=== PATIENT | female | born 1980 | race Caucasian/White ===

== ENCOUNTER 2016-05-28 18:35 | Emergency (ER) | payer OTHER ==
[~2016-05-28] VITALS: Ht 175.3 cm; Wt 158.8 kg
[~2016-05-28 18:35] MED LIST: CIPR500T78 PO; CITA40TA19 PO; CLIN300C3 PO; CPR500T PO; DCS100C PO; DOXY100C42 PO; ENXP40I.4 SC; ETHY1TAB4 PO; FLC100T1 PO; FLUC200T45 PO; HYDR-3720 PO; HYOS0.1283 SL; IBP800T PO; IBUP800T26 PO; METR500T PO; MTF500T PO; NITR-65 PO; NORG1TAB14 PO; OMEG-12 PO; OMEP40CA36 PO; ONDA4TAB8 PO; ONDN4T PO; OXYC-202 PO; PNV1CAPS13 PO; PREN1CAP PO; SERT50TA9 PO; TRAM-21 PO; TRM50T PO; depo shot
--- OUTSIDE RECORDS SUMMARY | 2016-05-28 18:40 | XMS REPORT | Continuity of Care Document ---
Author Author [facility] Organization [facility] Address Unknown Phone Unavailable Care Team Providers Care Polisher Implant Name Role Phone CARLOZ COMER MD PCP Insurance Providers Payer Name Policy Number Subscriber Name Relationship R [id number] Ilana Pro 18 Self / Same As Patient Advance Directives Directive Response Recorded Date/Time Advance Directives No 02/29/16 11:28am Health Care Power of Rail Manager No 02/29/16 11:28am Organ Donor No 02/29/16 11:28am Resuscitation Status Full Code 02/29/16 11:28am Problems Active Problems Medical Problem Onset Date Status Fever Unknown Acute Gastroenteritis Unknown Acute Postoperative state Unknown Acute state Unknown Acute Tachycardia Unknown Acute Urinary tract infection Unknown Acute Medications Current Home Medications Medication Dose Units Route Directions Days/Qty Instructions Start Date Sertraline Hcl 50 Mg 50 Mg Oral Daily 02/26/16 Ethynodiol D-Ethinyl Estradiol 1 Each 1 Each Oral Daily 02/26/16 Oxycodone Hcl/Acetaminophen 1 Each 1-2 Tab Oral Every 4HRS as needed for Pain 60 02/29/16 Past Home Medications Medication Directions Ordered Status Metformin Hcl (Glucophage) 500 Mg Tablet, 1 Each Oral Daily 07/19/12 Discontinued Citalopram Hydrobromide 40 Mg Tablet, 1 Each Oral Daily 07/19/12 Discontinued Ciprofloxacin 500 Mg Tablet, 1 Tab Oral Twice A Day 07/19/12 Discontinued Tramadol Hcl 50 Mg Tab, 100 Mg Oral Every 4HRS as needed 07/19/12 Discontinued Flasher-3/Dha/Epa/Fish Oil 1 Each Capsule.dr, 1 Each Oral Daily 07/19/12 Discontinued Pnv Comb.no58/Iron Bisgly/Fa 1 Each Capsule, 1 Each Oral 02/23/13 Discontinued No.25/Iron/Fa #6/Dha 1 Each Capsule, 2 Each Oral Daily 02/23/13 Discontinued Fluconazole 100 Mg Tab, 100 Mg Oral Daily@08 02/25/13 Discontinued Clindamycin Hcl 300 Mg Capsule, 2 Each Oral Give Every 8 Hrs On Schedule 11/30 Discontinued Ondansetron Hcl 4 Mg Tab, 1 Tab Oral Every 4HRS as needed for Nausea Discontinued Docusate Sodium 100 Mg Capsule, 1 Cap Oral Daily as needed for Constipation 06/25/13 Discontinued Acetaminophen/Hydrocodone Bitart (Jolo) 1 Each Tablet, 1-2 Tab Oral Every 3 Hours as needed for Pain 06/25/13 Discontinued Ibuprofen 800 Mg Tablet, 1 Tab Oral Every 6 Hours as needed for Pain Discontinued Doxycycline Monohydrate 100 Mg Capsule, 100 Mg Oral Twice A Day 06/28/13 Discontinued Enoxaparin Sodium 40 Mg/0.4 Ml Syr, 40 Mg Subcutaneously Every 24 Hours 07/01 Discontinued Docusate Sodium 100 Mg Capsule, 1 Cap Oral Daily as needed for Constipation 07/01/13 Discontinued Acetaminophen/Hydrocodone Bitart (Jolo) 1 Each Tablet, 1-2 Tab Oral Every 3 Hours as needed for Pain 07/01/13 Discontinued Ibuprofen 800 Mg Tablet, 1 Tab Oral Every 6 Hours as needed for Pain Discontinued Metronidazole 500 Mg Tab, 500 Mg Oral Twice A Day 07/01/13 Discontinued Ciprofloxacin Hcl 500 Mg Tablet, 500 Mg Oral Twice A Day 07/01/13 Discontinued Fluconazole 200 Mg Tablet, 1 Each Oral As Directed 07/01/13 Discontinued [Depo Shot] , 10/10/13 Discontinued Ibuprofen (Motrin) 800 Mg Tablet, 800 Mg Oral Every 8 Hours as needed for Pain 10/11/13 Discontinued Tramadol Hcl 50 Mg Tablet, 50-100 Mg Oral Every 6 Hours 11/27/13 Discontinued Omeprazole 40 Mg Capsule., 1 Cap Oral Daily 01/15/15 Discontinued Sertraline Hcl 50 Mg Tablet, 1 Tab Oral Daily 01/15/15 Discontinued Norgestimate-Ethinyl Estradiol 1 Each Tablet, 1 Tab Oral Daily 01/15/15 Discontinued Nitrofurantoin Monohyd/M-Cryst 100 Mg Capsule, 100 Mg Oral Twice A Day Discontinued Ondansetron 4 Mg Tab.rapdis, 4 Mg Oral Every 4HRS for Nausea/Vomiting Discontinued Hyoscyamine Sulfate 0.125 Mg Tab.subl, 1-2 Tab Sublingual Every 4HRS for Abdominal Pain 01/15/15 Discontinued Social History Social History Problem Response Recorded Date/Time Alcohol Use Rarely Uses 01/15/2015 8:32pm Recreational Drug Use No 01/15/2015 8:32pm Recent Foreign Travel No 11/26/2013 12:12pm Recent Infectious Disease Exposure No 11/26/2013 12:12pm Hospitalization with Isolation Denies 11/27/2013 6:22pm Sexually Transmitted Disease No 02/26/2016 11:48am HIV/AIDS No 02/26/2016 11:48am Smoking Status Never a Smoker 02/29/2016 11:28am Do you dip or chew tobacco? No 01/15/2015 8:32pm Recent Hopitalizations No 02/26/2016 11:48am Sexually Transmitted Disease No 02/26/2016 11:48am Hospitalization with Isolation Denies 11/27/2013 6:22pm Query Response Start Date Stop Date Smoking Status Never a Smoker 06/23/1999 Hospital Discharge Instructions Patient Instructions Physician Instructions New, Converted or Re-Newed RX: RX on Chart Patient Instructions: as directed Return to The Hospital For: as directed Discharge Diet: No Restrictions Activity as Tolerated: Yes Follow Up Appt: Call to make follow up appt. for patient in 2 weeks. Activity: Rest for 24 hours, than as tolerated. Please call in RX to patient pharmacy. Diet: As tolerated-Clear Liquids only if nauseated. Tomorrow, may shower or tub bathe as desired. No driving for 24 hours, no alcoholic beverages for 24 hours, and nothing per vagina (no tampons, douching, or intercourse) for 2 weeks. Patient to return to the clinic as soon as possible for: Temperature greater than 101F, Severe Pain, Foul discharge from incision or vagina, Excessive Bleeding (more than a period). Care Plan Patient Instructions:: as directed Plan of Care Discharge Date 02/29/16 3:15pm Instructions/Education Provided ANESTHESIA INSTRUCTIONS POSTOP Prescriptions See Medication Section Functional Status No functional status results. Allergies, Adverse Reactions, Alerts Allergen Type Severity Reaction Status Last Updated Penicillins ([id number]) Allergy Unknown Active 02/26/16 Immunizations No immunization records. Vital Signs Acute Vital Signs Vital Response Date/Time Temperature (Fahrenheit) 97.8 degrees F (97.6 - 99.5) 02/29/2016 3:15pm Temperature (Calculated Celsius) 36.31128 degrees C (36.4 - 37.5) 02/29/2016 3:15pm Temperature Source Tympanic 02/29/2016 3:15pm Pulse Rate (adult) 82 bpm (60 - 90) 02/29/2016 3:15pm Respiratory Rate 20 bpm (12 - 24) 02/29/2016 3:15pm O2 Sat by Pulse Oximetry 99 % (88 - 100) 02/29/2016 3:15pm Blood Pressure 119/71 mm Hg 02/29/2016 3:15pm Blood Pressure Mean 97 mm Hg 02/29/2016 11:24am Blood Pressure 119/71 mm Hg 02/29/2016 3:15pm Pain Numeric Pain Scale 3 02/29/2016 3:15pm Pain Intensity 3 02/29/2016 3:15pm Height (Feet) 5 feet 02/29/2016 11:34am Height (Inches) 9.00 inches 02/29/2016 11:34am Height (Calculated Centimeters) 175.595119 cm 02/29/2016 11:34am Weight (Pounds) 354 pounds 02/29/2016 11:34am Weight (Ounces) 3.0 oz 02/29/2016 11:34am Weight (Calculated Grams) 744047.75 gm 02/29/2016 11:34am Weight (Calculated Kilograms) 160.577717 kilograms 02/29/2016 11:34am Calculated BMI 52.3 02/29/2016 11:34am Results Pending Laboratory Results Test Name Collection Date/Time Pending Microbiology Results Procedure Source Collection Date/Time Procedures Procedure Status Date Provider(s) Hysteroscopy with dilation and curettage of uterus Completed 02/29/16 KRISTYN PEDRAZA MD Encounters Encounter Location Arrival/Admit Date Discharge/Depart Date Attending Provider Departed [facility] 02/29/16 10:58am 02/29/16 3:15pm KRISTYN PEDRAZA MD Departed Clinic [facility] 02/26/16 11:41am 02/26/16 1: 05pm KRISTYN PEDRAZA MD Registered Clinic [facility] 02/22/16 8:10am KRISTYN PEDRAZA MD
[2016-05-28] MEDS ORDERED: SULF1TAB35 PO (19:13)
[2016-05-28 19:32] LABS: BILIRUBIN,URINE NEGATIVE (NEGATIVE); KETONES,URINE NEGATIVE (NEGATIVE); LEUKOCYTE ESTERASE ,URINE NEGATIVE (NEGATIVE); NITRITE,URINE NEGATIVE (NEGATIVE); PH,URINE 7 (5-9); PROTEIN,URINE NEGATIVE (NEGATIVE); UROBILINOGEN,URINE NORMAL (NORMAL)
--- NOTE | 2016-05-28 19:32 | ED General ---
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 PT REPORTS L FLANK PAIN HAS INCREASED AND IS NOT IMPROVING. PT REPROTS SHE HAS TAKEN HOME OXYCODONE FROM PREVIOUS SURGERY AND DID NOT GET RELEIF. Nursing Sepsis Screen: No Definite Risk Source of Information: Patient Exam Limitations: No Limitations History of Present Illness Time Seen by Provider: 19:32 Initial Comments 35-year-old female patient presents to the emergency department with complaints of left low back pain beginning Thursday. Was seen at her PCPs office yesterday and diagnosed with urinary tract infection. Patient was placed on Bactrim without improvement in symptoms. Patient reports now has left flank pain, left low back pain, and pain radiating into the left buttock and left posterior thigh. Denies known injury. States she did take 2 of her Percocet left over from a surgery in the fall, but did not improve symptoms. Denies bowel or bladder incontinence. Timing/Duration: 3-4 Days, Changing Over Time, Getting Worse Modifying Factors: worse with Medication (no improvement with percocet.), worse with Movement, worse with Other (palpation) Allergies and Home Medications Allergies Coded Allergies: Penicillins (Verified Allergy, Unknown, 02/26/16) Home Medications Cyclobenzaprine HCl 10 Mg Tablet #14 10 MG PO Q8H PRN PRN SPASMS Prescribed by: CITLALY SCHMITT on 05/28/162034 Meloxicam 15 Mg Tablet #20 15 MG PO DAILY PRN PRN PAIN Prescribed by: CITLALY SCHMITT on 05/28/162034 Oxycodone HCl/Acetaminophen 1 Each Tablet #60 1-2 TAB PO Q4H PRN PRN PAIN Prescribed by: KRISTYN DREW on 02/29/16 121 Prednisone 20 Mg Tab #10 40 MG PO DAILY Prescribed by: CITLALY SCHMITT on 05/28/162034 Sertraline HCl 50 Mg Tablet 50 MG PO DAILY (Reported) Sulfamethoxazole/Trimethoprim 1 Each Tablet 1 EACH PO BID (Reported) Constitutional: No chills, No fever, No malaise EENTM: no symptoms reported Respiratory: no symptoms reported Cardiovascular: no symptoms reported Gastrointestinal: No abdominal pain, No constipation, No diarrhea, No nausea, No vomiting Genitourinary: No decreased output, No discharge, No dysuria, frequencyNo hematuria, pain : No Musculoskeletal: back pain muscle pain (left buttock and thigh) Skin: no symptoms reported Psychiatric/Neurological: Denies Headache, Denies Numbness, Denies Paresthesia , Denies Tingling, Denies Weakness All Other Systems Reviewed Negative Unless Noted: Yes (Negative excepted noted.) Past Scnrxsa-Xhbcic-Pljcxt Hx Patient Social History Alcohol Use: Occasionally Uses Recreational Drug Use: No Smoking Status: Never a Smoker Former Smoker/When Quit: Jun 23, 1999 Recent Foreign Travel: No Contact w/Someone Who Travel: No Recent Infectious Disease Expo: No Recent Hopitalizations: No Immunizations Up To Date Tetanus Booster (TDap): More than 5yrs Date of Pneumonia Vaccine: Jun 20, 2013 Date of Influenza Vaccine: Feb 12, 2016 Seasonal Allergies Seasonal Allergies: Yes Surgeries HX Surgeries: Yes ( X 1, ENDOMETRIAL ABLATION, DNC) Surgeries: Adenoidectomy, Section, Gallbladder, Tonsillectomy Respiratory Hx Respiratory Disorders: Yes Respiratory Disorders: Asthma Cardiovascular Hx Cardiac Disorders: No Neurological Hx Neurological Disorders: Yes (As Child- No seizure since age 7.) Neurological Disorders: Seizure Disorder Reproductive System Hx Reproductive Disorders: Yes (MENORRHAGIA, DUB) Sexually Transmitted Disease: No HIV/AIDS: No Female Reproductive Disorders: Menstrual Problems, Endometriosis, Ovarian 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 Genitourinary Hx Genitourinary Disorders: No Genitourinary Disorders: UTI-Chronic Gastrointestinal Hx Gastrointestinal Disorders: Yes (REFLUX SOMETIMES) Gastrointestinal Disorders: Gastroesophageal Reflux, Chronic Diarrhea Musculoskeletal Hx Musculoskeletal Disorders: No Endocrine Hx Endocrine Disorders: Yes (MORBID OBESITY) HEENT HX ENT Disorders: Yes (CONTACTS) Loss of Vision: Bilateral Hearing Impairment: Denies Cancer Hx Cancer: No Psychosocial Hx Psychiatric Problems: Yes Behavioral Health Disorders: Anxiety Integumentary HX Skin/Integumentary Disorder: No Blood Transfusions Hx Blood Disorders: No Adverse Reaction to a Blood Tr: No (N/A) Reviewed Nursing Assessment Reviewed/Agree w Nursing PMH: Yes Family Medical History Significant Family History: No Pertinent Family Hx Family Medial History: Congenital heart disease 09 BROTHER (brother was born with bicuspid valve and was unaware of this until had endocarditis at age 21) Family history: Allergy 03 FATHER (both father and pt have seasonal allergies) Heart disease 09 BROTHER (brother had endocarditis due to congital abnormality-onset at age 21) Hypercholesterolemia 03 FATHER (father has high cholesterol that started when he was 50) Stroke 09 BROTHER (brother had a stroke when he had endocarditis at age 21) No Family History of: Abdominal aortic aneurysm Mikey's disease Alcoholism Aphasia Cancer Cancer of colon Cataract Chest pain Congestive heart failure Cystic fibrosis Dementia Dysphagia Family history: Alzheimer's disease Family history: Arthritis Family history: Asthma Family history: Breast disease Family history: Cardiovascular disease Family history: Coronary thrombosis Family history: Diabetes mellitus Family history: Gastrointestinal disease Family history: Glaucoma Family history: Hypertension Family history: Osteoporosis Family history: Thyroid disorder Headache Hearing loss Hereditary disease History of - anemia History of - disorder History of - respiratory disease History of drug abuse Human immunodeficiency virus (HIV) seropositivity Infertile Kidney disease Malignant neoplasm of lung Myocardial infarction Parkinson's disease Prostate cancer Psychotic disorder Seizure disorder Tuberculosis Visual impairment Physical Exam Vital Signs Vital Sign - Last 12Hours 05/28/16 19:04 Temp 98.1 Pulse 92 Resp 16 B/P 140/78 Pulse Ox 96 O2 Delivery Room Air Capillary Refill : Less Than 3 Seconds General Appearance: No Apparent Distress WD/WN Obese Respiratory: Lungs Clear Normal Breath Sounds No Respiratory Distress Cardiovascular: Regular Rate, Rhythm No Murmur Normal Peripheral Pulses Gastrointestinal: Normal Bowel Sounds No Organomegaly SoftNo Distended, No Guarding, No Rebound, Tenderness (left flank TTP) Back: Normal Inspection No Vertebral Tenderness CVA Tenderness (L)No CVA Tenderness (R) Extremity: Normal Capillary Refill Pedal Edema (trace pedal edema bilaterally. ) Other (left buttock and left proximal, posterior thigh ttp w/o evidence of trauma or swelling.) Neurologic/Psychiatric: Alert Oriented x3 No Motor/Sensory Deficits Normal Mood/Affect Skin: Normal Color Warm/Dry Progress/Results/Core Measures Results/Orders Lab Results Laboratory Tests Test 05/28/16 19:25 Range/Units Urine Bacteria FEW H /HPF Urine Bilirubin NEGATIVE NEGATIVE Urine Casts NONE /LPF Urine Clarity SLIGHTLY CLOUDY Urine Color YELLOW Urine Crystals NONE /LPF Urine Culture Indicated NO Urine Glucose (UA) NEGATIVE NEGATIVE Urine Ketones NEGATIVE NEGATIVE Urine Leukocyte Esterase NEGATIVE NEGATIVE Urine Mucus NEGATIVE /LPF Urine Nitrite NEGATIVE NEGATIVE Urine Protein NEGATIVE NEGATIVE Urine RBC 0-2 /HPF Urine RBC (Auto) 2+ H NEGATIVE Urine Specific [place] 1.010 L 1.016-1.022 Urine Squamous Epithelial Cells 0-2 /HPF Urine Urobilinogen NORMAL NORMAL MG/DL Urine WBC RARE /HPF Urine pH 7 5-9 My Orders Orders-CITLALY SCHMITT Ua Culture If Indicated (05/28/16 19:08) Urine Bedside (05/28/16 19:08) Morphine Injection (Morphine Injection (05/28/16 19:42) Orphenadrine Injection (Norflex Injectio (05/28/16 19:42) Ct Abd/Pelvis Wo(Kidney Stone) (05/28/16 19:49) Oxycodone/Apap 5/325mg Tablet (Percocet (05/28/16 20:42) Vital Signs/I&O Vital Sign - Last 12Hours 05/28/16 05/28/16 19:04 20:52 Temp 98.1 Pulse 92 85 Resp 16 18 B/P 140/78 Pulse Ox 96 98 O2 Delivery Room Air Blood Pressure Mean: 98 Point of Care Testing Urine -Bedside: Negative Diagnostic Imaging Diagonstic Imaging: CT Plain Films/CT/US/NM/MRI: abdomen, pelvis Comments FINDINGS: No kidney stones, inflammation or hydronephrosis is present. The lung bases are clear. The gallbladder is absent. Fatty infiltration of the liver is again identified. The spleen is unchanged and upper normal in size. Pancreas and adrenal glands are normal. There is a normal appearance of the appendix. An umbilical hernia is present containing fat only without inflammation. The bowel loops appear normal. No ascites or free air is present. An IUD is in place. Small cysts are seen in the ovaries. No ascites or free air is present. The osseous structures demonstrate pars defects at L5. IMPRESSION: 1. Stable fatty infiltration of the liver with borderline splenomegaly. The gallbladder is absent. 2. The kidneys and urinary bladder appear unremarkable. 3. An IUD appears normally positioned within the uterus. 4. There is a small umbilical hernia containing fat only without inflammation. 5. Bilateral pars defects are present at L5. Dictated by: Dictated on workstation # [id number] Reviewed: Reviewed by Me (radiology report reviewed) Departure Communication Progress Notes All laboratory findings discussed with the patient. Patient reports improvement in symptoms with IM Norflex and Toradol, but states her pain is still a 5/10. Giving 2 tablets of Percocet prior to discharge. All return precautions were discussed with the patient as described in the discharge instructions of this report. Patient voices understanding and agrees with the treatment plan. Impression Impression: Primary Impression: Lumbar radiculopathy Additional Impression: Left flank pain Disposition: 01 HOME, SELF-CARE Condition: Improved Departure-Patient Inst. Decision time for Depature: 20:34 Referrals: CARLOZ COMER MD (PCP/Family) Primary Care Physician Patient Instructions: Radiculopathy (DC) Add. Discharge Instructions: All discharge instructions reviewed with patient and/or family. Voiced understanding. Medications as instructed. Continue the Percocet as instructed by your prescribing physician. Ice packs or heating pads as needed for pain. No heavy lifting, pushing or pulling for 7 days. Increase activity as tolerated. Follow-up with your family practitioner for recheck as an outpatient. Return to the emergency department for worsened pain, numbness, weakness, bowel incontinence, bladder incontinence, fever, or any other concerns. Scripts Meloxicam (Mobic)15 Mg [id number] Mg PO DAILY PRN PAIN #20 TAB Ref 0 Prov:CITLALY SCHMITT 05/28/16 Cyclobenzaprine HCl 10 Mg [id number] Mg PO Q8H PRN SPASMS #14 TAB Ref 0 Prov:CITLALY SCHMITT 05/28/16 Prednisone 20 Mg Tab40 Mg PO DAILY #10 TAB Ref 0 Prov:CITLALY SCHMITT 05/28/16 CITLALY SCHMITT May 28, 2016 19:32
[2016-05-28] MEDS ORDERED: ORPHENADRINE 60 MG/2 ML (NORFLEX) AMP IM STA (19:42)
[2016-05-28] MEDS ORDERED: morphine INJ 10 MG/ML 1ML (SYR OR VIAL) IM STA (19:42)
[2016-05-28 19:46] LABS: SQUAMOUS EPITHELIAL CELL,UR 0-2 /HPF; WBC,URINE RARE /HPF
--- NOTE | 2016-05-28 20:17 | Diagnostic Imaging Report ---
INDICATION: Severe back pain for three days. Urinary tract infection. Blood in the urine. Left-sided pain. COMPARISON STUDY: CT scan of the abdomen and pelvis from 01/15/15. FINDINGS: No kidney stones, inflammation or hydronephrosis is present. The lung bases are clear. The gallbladder is absent. Fatty infiltration of the liver is again identified. The spleen is unchanged and upper normal in size. Pancreas and adrenal glands are normal. There is a normal appearance of the appendix. An umbilical hernia is present containing fat only without inflammation. The bowel loops appear normal. No ascites or free air is present. An IUD is in place. Small cysts are seen in the ovaries. No ascites or free air is present. The osseous structures demonstrate pars defects at L5. IMPRESSION: 1. Stable fatty infiltration of the liver with borderline splenomegaly. The gallbladder is absent. 2. The kidneys and urinary bladder appear unremarkable. 3. An IUD appears normally positioned within the uterus. 4. There is a small umbilical hernia containing fat only without inflammation. 5. Bilateral pars defects are present at L5. Dictated by: Dictated on workstation # [id number]
[2016-05-28] MEDS ORDERED: CYCL10TA9 PO (20:35)
[2016-05-28] MEDS ORDERED: PRD20T PO (20:35)
[2016-05-28] MEDS ORDERED: MELO15TA14 PO (20:35)
[2016-05-28] MEDS ORDERED: oxyCODONE/APAP 5/325MG (PERCOCET 5) TABLET PO STA (20:42)
[2016-05-28 20:52] VITALS: BP 135/70
== END 2016-05-28 20:52 | disposition home or self-care (01) ==
LOC: EDUNIT# 18:35 → ER 18:36
DX: M54.16 Radiculopathy, lumbar region (principal); R10.32 Left lower quadrant pain; K76.0 Fatty (change of) liver, not elsewhere classified; K42.9 Umbilical hernia without obstruction or gangrene; Z97.5 Presence of (intrauterine) contraceptive device; Z90.49 Acquired absence of other specified parts of digestive tract
CPT/HCPCS: 74176; 81000; 84703; 96372; 99282

== ENCOUNTER → 2016-06-05 | Outpatient (CLI) | payer OTHER ==
[~2016-06-05] MED LIST changes: +CYCL10TA9 PO; +MELO15TA14 PO; +PRD20T PO; +SULF1TAB35 PO
--- OUTSIDE RECORDS SUMMARY | 2016-06-05 11:58 | XMS REPORT | Continuity of Care Document ---
Author Author [facility] Organization [facility] Address Unknown Phone Unavailable Care Team Providers Care Uptwist Spinner Name Role Phone CARLOZ COMER MD PCP Insurance Providers Payer Name Policy Number Subscriber Name Relationship UMR [id number] Ilana Pro 18 Self / Same As Patient Advance Directives Directive Response Recorded Date/Time Advance Directives No 05/28/16 7:04pm Health Care Power of Mobile Designer No 05/28/16 7:04pm Organ Donor No 05/28/16 7:04pm Resuscitation Status Full Code 05/28/16 7:04pm Chief Complaint and Reason for Visit Chief Complaint Back Problems Reason for Visit Lumbar radiculopathy Left flank pain Problems Active Problems Medical Problem Onset Date Status Fever Unknown Acute Gastroenteritis Unknown Acute Left flank pain Unknown Acute Lumbar radiculopathy Unknown Acute Postoperative state Unknown Acute state Unknown Acute Tachycardia Unknown Acute Urinary tract infection Unknown Acute Medications Current Home Medications Medication Dose Units Route Directions Days/Qty Instructions Start Date Sertraline Hcl 50 Mg 50 Mg Oral Daily 02/26/16 Oxycodone Hcl/Acetaminophen 1 Each 1-2 Tab Oral Every 4HRS as needed for Pain 60 02/29/16 Sulfamethoxazole/Trimethoprim 1 Each 1 Each Oral Twice A Day Prednisone 20 Mg 40 Mg Oral Daily 10 05/28/16 Cyclobenzaprine Hcl 10 Mg 10 Mg Oral Every 8HRS as needed for Spasms 14 05/28/16 Meloxicam 15 Mg 15 Mg Oral Daily as needed for Pain 20 05/28/16 Past Home Medications Medication Directions Ordered Status Metformin Hcl (Glucophage) 500 Mg Tablet, 1 Each Oral Daily 07/19/12 Discontinued Citalopram Hydrobromide 40 Mg Tablet, 1 Each Oral Daily 07/19/12 Discontinued Ciprofloxacin 500 Mg Tablet, 1 Tab Oral Twice A Day 07/19/12 Discontinued Tramadol Hcl 50 Mg Tab, 100 Mg Oral Every 4HRS as needed 07/19/12 Discontinued [place]-3/Dha/Epa/Fish Oil 1 Each Capsule.dr, 1 Each Oral [...] needed for Constipation 06/25/13 Discontinued Acetaminophen/Hydrocodone Bitart ([place]) 1 Each Tablet, 1-2 Tab Oral Every [...] needed for Constipation 07/01/13 Discontinued Acetaminophen/Hydrocodone Bitart ([place]) 1 Each Tablet, 1-2 Tab Oral Every [...] 6 Hours 11/27/13 Discontinued Omeprazole 40 Mg Capsule.dr, 1 Cap Oral Daily 01/15/15 Discontinued Sertraline [...] Every 4HRS for Abdominal Pain 01/15/15 Discontinued Ethynodiol D-Ethinyl Estradiol 1 Each Tablet, 1 Each Oral Daily 02/26/16 Discontinued Social History Social History Problem Response Recorded Date/Time Alcohol Use Rarely Uses 01/15/2015 8:32pm Recreational Drug Use No 01/15/2015 8:32pm Recent Foreign Travel No 11/26/2013 12:12pm Recent Infectious Disease Exposure No 11/26/2013 12:12pm Hospitalization with Isolation Denies 11/27/2013 6:22pm Sexually Transmitted Disease No 05/28/2016 7:04pm HIV/AIDS No 05/28/2016 7:04pm Smoking Status Never a Smoker 05/28/2016 7:04pm Do you dip or chew tobacco? No 01/15/2015 8:32pm Recent Hopitalizations No 05/28/2016 7:04pm Sexually Transmitted Disease No 05/28/2016 7:04pm Hospitalization with Isolation Denies 11/27/2013 6:22pm Query Response Start Date Stop Date Smoking Status Never a Smoker 06/23/1999 Hospital Discharge Instructions No hospital discharge instructions. Plan of Care Discharge Date 05/28/16 8:52pm Disposition 01 HOME, SELF-CARE Condition at Discharge Improved Instructions/Education Provided Radiculopathy (DC) Prescriptions See Medication Section Referrals CARLOZ COMER MD - Primary Care Physician Additional Instructions/Education All discharge instructions reviewed with patient and/or family. Voiced understanding. Medications as instructed. Continue the Percocet as instructed by your prescribing physician. Ice packs or heating pads as needed for pain. No heavy lifting, pushing or pulling for 7 days. Increase activity as tolerated. Follow-up with your family practitioner for recheck as an outpatient. Return to the emergency department for worsened pain, numbness, weakness, bowel incontinence, bladder incontinence, fever, or any other concerns. Functional Status No functional status results. Allergies, Adverse Reactions, Alerts Allergen Type Severity Reaction Status Last Updated Penicillins ([id number]) Allergy Unknown Active 02/26/16 Immunizations No immunization records. Vital Signs Acute Vital Signs Vital Response Date/Time Temperature (Fahrenheit) 98.1 degrees F (97.6 - 99.5) 05/28/2016 7:04pm Temperature (Calculated Celsius) 36.15858 degrees C (36.4 - 37.5) 05/28/2016 7:04pm Temperature Source Temporal 05/28/2016 7:04pm Pulse Rate (adult) 92 bpm (60 - 90) 05/28/2016 7:04pm Respiratory Rate 16 bpm (12 - 24) 05/28/2016 7:04pm O2 Sat by Pulse Oximetry 96 % (88 - 100) 05/28/2016 7:04pm Blood Pressure 140/78 mm Hg 05/28/2016 7:04pm Blood Pressure Mean 98 mm Hg 05/28/2016 7:04pm Pain Numeric Pain Scale 7 05/28/2016 8:50pm Height (Feet) 5 feet 05/28/2016 7:04pm Height (Inches) 9.00 inches 05/28/2016 7:04pm Height (Calculated Centimeters) 175.580912 cm 05/28/2016 7:04pm Weight (Pounds) 350 pounds 05/28/2016 7:04pm Weight (Ounces) 3.0 oz 05/28/2016 7:04pm Weight (Calculated Grams) 741407.749 gm 05/28/2016 7:04pm Weight (Calculated Kilograms) 158.775183 kilograms 05/28/2016 7:04pm Calculated BMI 52.3 05/28/2016 7:04pm Capillary Refill Capillary Refill Less Than 3 Seconds 05/28/2016 7:04pm Results Laboratory Results Test Name Result Units Flags Reference Collection Date/Time Result Date/ Time Comments Urine Color YELLOW 05/28/2016 7:25pm 05/28/2016 7:47pm Urine Clarity SLIGHTLY CLOUDY 05/28/2016 7:25pm 05/28/2016 7:47pm Urine pH 7 5-9 05/28/2016 7:25pm 05/28/2016 7:47pm Urine Specific [place] 1.010 * 1.016-1.022 05/28/2016 7:25pm 2016 7:47pm Urine Protein NEGATIVE NEGATIVE 05/28/2016 7:25pm 05/28/2016 7:47pm Urine Glucose (UA) NEGATIVE NEGATIVE 05/28/2016 7:25pm 05/28/2016 7: 47pm Urine RBC (Auto) 2+ * NEGATIVE 05/28/2016 7:25pm 05/28/2016 7:47pm Urine Ketones NEGATIVE NEGATIVE 05/28/2016 7:25pm 05/28/2016 7:47pm Urine Nitrite NEGATIVE NEGATIVE 05/28/2016 7:25pm 05/28/2016 7:47pm Urine Bilirubin NEGATIVE NEGATIVE 05/28/2016 7:25pm 05/28/2016 7: 47pm Urine Urobilinogen NORMAL MG/DL NORMAL 05/28/2016 7:25pm 05/28/2016 7: 47pm Urine Leukocyte Esterase NEGATIVE NEGATIVE 05/28/2016 7:25pm 2016 7:47pm Urine RBC 0-2 /HPF 05/28/2016 7:25pm 05/28/2016 7:47pm Urine WBC RARE /HPF 05/28/2016 7:25pm 05/28/2016 7:47pm Urine Bacteria FEW /HPF * 05/28/2016 7:25pm 05/28/2016 7:47pm Urine Squamous Epithelial Cells 0-2 /HPF 05/28/2016 7:25pm 2016 7:47pm Urine Crystals NONE /LPF 05/28/2016 7:25pm 05/28/2016 7:47pm Urine Casts NONE /LPF 05/28/2016 7:25pm 05/28/2016 7:47pm Urine Mucus NEGATIVE /LPF 05/28/2016 7:25pm 05/28/2016 7:47pm Urine Culture Indicated NO 05/28/2016 7:25pm 05/28/2016 7:47pm Procedures No known history of procedures. Encounters Encounter Location Arrival/Admit Date Discharge/Depart Date Attending Provider Departed Emergency Room [facility] 05/28/16 6:36pm 05/28 8:52pm CITLALY SCHMITT Recent Diagnosis
--- NOTE | 2016-06-05 17:59 | Diagnostic Imaging Report ---
Three views of the lumbar spine. INDICATION: Low back pain. FINDINGS: There is straightening of the lumbar lordosis. There is minimal retrolisthesis of L4 over L5. Mild disc height loss at this level is also seen. There are minimal anterior osteophytes noted. Minimal subchondral sclerosis in the SI joints seen. There is an IUD in place. IMPRESSION: Mild disc height loss at L4-L5 with minimal retrolisthesis at this level. Dictated by: Dictated on workstation # [id number]
--- NOTE | 2016-06-05 18:07 | Diagnostic Imaging Report ---
AP pelvis and bilateral hip radiographs. INDICATION: Low back and bilateral hip pain. FINDINGS: There is a bony prominence seen at the outer aspect of the femoral head and neck junction bilaterally more prominent on the right side. 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 The joint space s normal. No significant arthritic changes seen. No fracture or dislocation. There is minimal subchondral sclerosis in the SI joints, may relate to early degenerative changes. An IUD is seen. IMPRESSION: There is slight bony prominence at the lateral margin of the femoral head and neck junction, more prominent on the right side. 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 Dictated by: Dictated on workstation # [id number]
== END ==
LOC: RAD 11:54
DX: M54.5 Low back pain (principal); M25.551 Pain in right hip; M25.552 Pain in left hip
CPT/HCPCS: 72100; 73523

== ENCOUNTER → 2016-12-02 | Outpatient (CLI) | payer OTHER ==
--- NOTE | 2016-12-02 17:50 | Diagnostic Imaging Report ---
INDICATION: Bilateral knee pain status post fall. COMPARISON: None. FINDINGS: Multiple radiographic views of the bilateral knee joints demonstrate no acute fracture or dislocation. No focal osseous lesions are seen. No significant joint effusion is seen. The surrounding soft tissue structures are unremarkable. There are no radiopaque foreign bodies. IMPRESSION: 1. Unremarkable radiographic exam of the bilateral knees. Dictated by: Dictated on workstation # [id number]
== END ==
LOC: RAD 16:50
PROVIDERS: ATTEND Nurse Practitioner Family
DX: M25.561 Pain in right knee (principal); M25.562 Pain in left knee

== ENCOUNTER → 2017-10-27 | Outpatient (CLI) | payer OTHER ==
--- NOTE | 2017-10-27 17:08 | Diagnostic Imaging Report ---
EXAMINATION: Left knee at 03:53 p.m. INDICATION: Knee pain. FINDINGS: Three views were obtained. There is no fracture, dislocation, or acute bony abnormality evident. The knee joint is well maintained and appears similar to the prior exam of 12/02/2016. The soft tissues are unremarkable. IMPRESSION: 1. There is no evidence for an acute bony abnormality. 2. If there is clinical concern regarding internal derangement, then MRI will be recommended for additional study. Dictated by: Dictated on workstation # [id number]
== END ==
LOC: RAD 15:20
DX: M25.562 Pain in left knee (principal)
CPT/HCPCS: 73562

== ENCOUNTER → 2017-10-31 | Outpatient (CLI) | payer OTHER ==
--- NOTE | 2017-10-31 09:36 | Diagnostic Imaging Report ---
PROCEDURE: MRI left joint lower extremity without contrast. TECHNIQUE: Multiplanar, multisequence non contrast-enhanced MRI of the left lower extremity was accomplished. INDICATION: Left knee pain and weakness for one week with pain around the patella. The marrow signal intensity is unremarkable. No geographic marrow lesion or bone bruise is identified. ACL and PCL are intact. The medial and lateral collateral complexes appear to be intact. Medial and lateral menisci are intact. No tear or displaced meniscal fragment is detected. Extensor mechanism is unremarkable. Articular cartilage is without evidence of osteochondral lesion. IMPRESSION: Essentially unremarkable MRI of the left knee. No ligamentous or meniscal tear is detected. Dictated by: Dictated on workstation # [id number]
== END ==
LOC: RAD 07:46
DX: M25.562 Pain in left knee (principal); R53.1 Weakness
CPT/HCPCS: 73721

== ENCOUNTER 2018-07-31 20:25 | Emergency (ER) | payer OTHER ==
[~2018-07-31] VITALS: Ht 175.3 cm; Wt 145.1 kg
[~2018-07-31 20:25] MED LIST changes: -OXYC-202 PO; +OXYC1TAB12 PO
--- OUTSIDE RECORDS SUMMARY | 2018-07-31 20:38 | XMS REPORT ---
Author Author MITRA Ko [facility] Address [address] [place] [address] Care Team Providers Care Architect Intern Name Role Phone MITRA Ko Unavailable PROBLEMS Type Condition ICD9-CM Code [id number] Code Onset Dates Condition Status SNOMED Code Problem Other specified hypoglycemia 251.1 Active 475061053 Problem Other and unspecified hyperlipidemia 272.4 Active 49410783 Problem Cough 786.2 Active 27226840 Problem DTAP TEST V06.1 Active Problem Dysthymic disorder 300.4 Active 77523861 Problem Acute bronchitis 466.0 Active 06206203 ALLERGIES Substance Reaction Event Type Date Status Penicillin V Potassium Unknown Drug Allergy May, Active Azithromycin Stomach cramps Drug Allergy May, Active ENCOUNTERS Encounter Location Date Diagnosis [facility] [id number] [place] [address] May, Left foot pain M79.672 ; Swelling of toe of left foot M79.89 ; Injury of left foot, initial encounter S99.922A and BMI 45.0-49.9, adult Z68.42 [facility] [id number] [place] [phone] Dec, Acute non-recurrent maxillary sinusitis J01.00 [facility] [address] [place] [address] Nov, [facility] [id number] [place] [phone] 15 Nov, 2016 Bilateral knee pain M25.561 [facility] [id number] [place] [phone] 14 Mar, 2016 Pharyngitis due to other organism J02.8 [facility] [address] [address] Oct, Hip pain 719.45 and Sciatic nerve pain 724.3 [facility] [id number] [address] 14 Jul, 2014 [facility] [address], [place] [address] Jul, [facility] [id number] [place] [address] Jun, [facility] [id number] [place] [phone] Jun, [facility] [id number] [place] [address] [phone] Jun, [facility] [id number] [place] [address] Jun, [facility] [id number] [place] [phone] Jun, [facility] [address] [place] [phone] Jun, [facility] [address], [place] [address] May, [facility] [address], [place] [address] May, [facility] [address] [address] Apr, IMMUNIZATIONS No Known Immunizations SOCIAL HISTORY Never Assessed REASON FOR VISIT leg pain Pt c/o L leg pain after doing jumping jacks and accidentally kicking a tree when playing with her daughter LAMINE Martínez PLAN OF CARE Activity Details Follow Up prn Reason: VITAL SIGNS Height 69 in 2017-06-05 Weight 315.4 lbs 2017-06-05 Temperature 97.2 degrees Fahrenheit 2017-06-05 Heart Rate 100 bpm 2017-06-05 Respiratory Rate 20 2017-06-05 BMI 46.57 kg/m2 2017-06-05 Blood pressure systolic 120 mmHg 2017-06-05 Blood pressure diastolic 78 mmHg 2017-06-05 MEDICATIONS Medication Instructions Dosage Frequency Start Date End Date Duration Status Mirena (52 MG) 20 MCG/24HR Active Sudafed 30 MG Orally every 6 hrs 1 tablet as needed 6h Active Farxiga 5 MG Orally Once a day 1 tablet 24h Active Etodolac 300 MG Orally 3 times a day prn 1 capsule Not-Taking Sertraline HCl 50 MG Orally Once a day 1 tablet 24h Active Celexa 40 mg take 1 tablet (40 mg) by oral route once daily May, Not-Taking Cyclobenzaprine HCl 10 MG Orally 2 times a day prn 1 tablet Not- Taking Sprintec 28 0.25-35 MG-MCG Orally Once a day 1 tablet 24h Not- Taking Gabapentin 300 MG Orally Once a day hs 1 capsule Oct, 30 days Not-Taking RESULTS Name Result Date Reference Range Xray : Foot, Left 3 views (IN HOUSE) PROCEDURES Procedure Date Ordered Result Body Site X-RAY EXAM OF FOOT Jun 05, 2017 INSTRUCTIONS MEDICATIONS ADMINISTERED No Known Medications MEDICAL (GENERAL) HISTORY Type Description Date Medical History hyperlipdemia in past Medical History excessive insulin in past Medical History anxiety Medical History Endometriosis Medical History asthma Surgical History section Surgical History dilatation and curettage 02/2016 Surgical History endometrial ablation 02/2016
--- OUTSIDE RECORDS SUMMARY | 2018-07-31 20:38 | XMS REPORT ---
Author Author YOUSIF CONNOLLY [facility] Address [address] [place] [address] Care Team Providers Care Rn Psych Name Role Phone YOUSIF CONNOLLY Unavailable PROBLEMS Type Condition ICD9-CM Code [id number] Code Onset Dates Condition Status SNOMED Code Problem DTAP TEST V06.1 Active Problem Cough 786.2 Active 71920597 Problem Dysthymic disorder 300.4 Active 57917865 Problem Other specified hypoglycemia 251.1 Active 781242695 Problem Other and unspecified hyperlipidemia 272.4 Active 62750613 Problem Acute bronchitis 466.0 Active 49124326 ALLERGIES Substance Reaction Event Type Date Status Penicillin V Potassium Unknown Drug Allergy Mar, Active Azithromycin Stomach cramps Drug Allergy Mar, Active SOCIAL HISTORY No smoking Hx information available PLAN OF CARE VITAL SIGNS Height 69 in 2016-04-02 Weight 359.4 lbs 2016-04-02 Temperature 98.4 degrees Fahrenheit 2016-04-02 Heart Rate 80 bpm 2016-04-02 Respiratory Rate 20 2016-04-02 BMI 53.07 kg/m2 2016-04-02 Blood pressure systolic 120 mmHg 2016-04-02 Blood pressure diastolic 78 mmHg 2016-04-02 MEDICATIONS Medication Instructions Dosage Frequency Start Date End Date Duration Status Mirena (52 MG) 20 MCG/24HR Active Sertraline HCl 50 MG Orally Once a day 1 tablet 24h Active Doxycycline Hyclate 100 MG Orally every 12 hrs 1 capsule 12h Mar, Mar, 10 days Active RESULTS No Results PROCEDURES Procedure Date Ordered Related Diagnosis Body Site Office Visit, Est Pt., Level 3 Apr 02, 2016 IMMUNIZATIONS No Known Immunizations
--- OUTSIDE RECORDS SUMMARY | 2018-07-31 20:38 | XMS REPORT ---
Author Author YOUSIF CONNOLLY Organization [facility] Address [address] [place] [address] Care Team Providers Care Chick Room Supervisor Name Role Phone YOUSIF CONNOLLY Unavailable PROBLEMS Type Condition ICD9-CM Code [id number] Code Onset Dates Condition Status SNOMED Code Problem Other specified hypoglycemia 251.1 Active 417281760 Problem Other and unspecified hyperlipidemia 272.4 Active 06783181 Problem Cough 786.2 Active 39620325 Problem DTAP TEST V06.1 Active Problem Dysthymic disorder 300.4 Active 39844721 Problem Acute bronchitis 466.0 Active 18933536 ALLERGIES Substance Reaction Event Type Date Status Penicillin V Potassium Unknown Drug Allergy Dec, Active Azithromycin Stomach cramps Drug Allergy Dec, Active ENCOUNTERS Encounter Location Date Diagnosis [facility] [id number] [place] [phone] May, Left foot pain M79.672 ; Swelling of toe of left foot M79.89 ; Injury of left foot, initial encounter S99.922A and BMI 45.0-49.9, adult Z68.42 [facility] [id number] [place] [phone] Dec, Acute non-recurrent maxillary sinusitis J01.00 [facility] [id number] [place] [address] Nov, [facility] [id number] [place] [phone] Nov, Bilateral knee pain M25.561 [facility] [id number] [place] [address] Mar, Pharyngitis due to other organism J02.8 [facility] [id number] [place] [address] Oct, Hip pain 719.45 and Sciatic nerve pain 724.3 [facility] [address], [place] [address] 14 Jul, 2014 [facility] [address], [place] [address] Jul, [facility] [address], [place] [address] Jun, [facility] [address], [place] [address] Jun, [facility] [address], [place] [address] Jun, [facility] [address] [place] [address] Jun, [facility] [address] [place] [address] Jun, [facility] [address], [place] [address] Jun, [facility] [address], [place] [address] May, [facility] [address], [place] [address] May, [facility] [address], [place] [address] Apr, IMMUNIZATIONS Vaccine Route Administration Date Status SOLUMEDROL (UP TO 125 MG) IM Intramuscular Jan 10, 2017 Administered SOCIAL HISTORY Never Assessed REASON FOR VISIT congestion, sinus pain and pressure started 2 weeks ago Dave PLAN OF CARE VITAL SIGNS Height 69 in 2017-01-10 Weight 319.0 lbs 2017-01-10 Temperature 97.7 degrees Fahrenheit 2017-01-10 Heart Rate 84 bpm 2017-01-10 Respiratory Rate 20 2017-01-10 BMI 47.10 kg/m2 2017-01-10 Blood pressure systolic 120 mmHg 2017-01-10 Blood pressure diastolic 80 mmHg 2017-01-10 MEDICATIONS Medication Instructions Dosage Frequency Start Date End Date Duration Status Farxiga 5 MG Orally Once a day 1 tablet 24h Active Doxycycline Hyclate 100 mg Orally every 12 hrs 1 capsule 12h Dec, Jan, 10 days Active Mirena (52 MG) 20 MCG/24HR Active Sertraline HCl 50 MG Orally Once a day 1 tablet 24h Active Sudafed 30 MG Orally every 6 hrs 1 tablet as needed 6h Active RESULTS No Results PROCEDURES Procedure Date Ordered Result Body Site SOLUMEDROL (UP TO 125 MG) Jan 10, 2017 THER/PROPH/DIAG INJ, SC/IM Jan 10, 2017 INSTRUCTIONS MEDICATIONS ADMINISTERED No Known Medications MEDICAL (GENERAL) HISTORY Type Description Date Medical History hyperlipdemia in past Medical History excessive insulin in past Medical History anxiety Medical History Endometriosis Medical History asthma Surgical History section Surgical History dilatation and curettage 02/2016 Surgical History endometrial ablation 02/2016
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
[2018-07-31] MEDS ORDERED: RT-ALBUTEROL/IPRATROPIUM 3 ML (DUONEB) VIAL INH ONE (20:45)
[2018-07-31] MEDS ORDERED: KETOROLAC 60 MG/2 ML VIAL IM ONE (20:45)
[2018-07-31] MEDS ORDERED: PROCHLORPERAZINE 10 MG/2ML INJ (COMPAZINE) IM ONE (20:45)
[2018-07-31] MEDS ORDERED: diphenhydrAMINE 50 MG/ML INJ (BENADRYL) IM ONE (20:45)
--- NOTE | 2018-07-31 21:53 | ED Headache ---
General Chief Complaint: Head/Cervical Problems Stated Complaint: NECK PAIN, COUGH, HEADACHE Nursing Triage Note: AMBULATORY TO ED WITH C/O FEELING VERY TIRED, NECK PAIN, COUGH, HEADACHE. HAS TAKEN MOTRIN, AND LEFT OVER DOXYCYCLINE AND PREDNISONE SHE HAD AT HOME. Nursing Sepsis Screen: No Definite Risk Source: patient Exam Limitations: no limitations History of Present Illness Date Seen by Provider: Jul 31, 2018 Time Seen by Provider: 20:40 Initial Comments 37-year-old female who presents to the emergency room with complaints of cough, wheezing, migraine and right-sided neck pain with coughing. She reports that she started left over prednisone and doxycycline for one day from previous bronchitis episode. She continues to smoke half pack per day. She denies fevers. She is alert and oriented on arrival to the emergency room and there is no nuchal rigidity. Timing/Duration: waxing and waning Severity/Quality: achy Location: global Prior Headaches/Recent Trauma: no recent headache/trauma Allergies and Home Medications Allergies Coded Allergies: Penicillins (Verified Allergy, Unknown, 02/26/16) Home Medications Cyclobenzaprine HCl 10 Mg Tablet, 10 MG PO Q8H PRN for SPASMS Prescribed by: CITLALY SCHMITT on 05/28/162034 Levofloxacin 750 Mg Tablet, 750 MG PO DAILY Prescribed by: CJ CASTELLANOS on 07/31/182211 Meloxicam 15 Mg Tablet, 15 MG PO DAILY PRN for PAIN Prescribed by: CITLALY SCHMITT on 05/28/162034 Oxycodone HCl/Acetaminophen 1 Each Tablet, 1-2 TAB PO Q4H PRN for PAIN Prescribed by: KRISTYN DREW on 02/29/16 1216 Prednisone 20 Mg Tab, 40 MG PO DAILY Prescribed by: CITLALY SCHMITT on 05/28/162034 Prednisone 20 Mg Tab, 40 MG PO DAILY Prescribed by: CJ CASTELLANOS on 07/31/182211 Sertraline HCl 50 Mg Tablet, 50 MG PO DAILY, (Reported) Sulfamethoxazole/Trimethoprim 1 Each Tablet, 1 EACH PO BID, (Reported) Patient Home Medication List Home Medication List Reviewed: Yes Review of Systems Review of Systems Constitutional: see HPI; No chills, No fever Respiratory: see HPI, cough, wheezing Psychiatric/Neurological: See HPI, Headache All Other Systems Reviewed Negative Unless Noted: Yes Past Pxcldsr-Xlwxmp-Fexmsk Hx Past Med/Social Hx: Reviewed Nursing Past Med/Soc Hx Patient Social History Alcohol Use: Occasionally Uses Number of Drinks Today: BB Alcohol Beverage of Choice: Beer, [place] Recreational Drug Use: No Smoking Status: Current Everyday Smoker Type Used: Cigarettes Recent Foreign Travel: No Contact w/Someone Who Travel: No Recent Infectious Disease Expo: No Recent Hopitalizations: No Immunizations Up To Date Tetanus Booster (TDap): More than 5yrs Date of Pneumonia Vaccine: Jun 20, 2013 Date of Influenza Vaccine: Feb 12, 2016 Seasonal Allergies Seasonal Allergies: Yes Past Medical History Surgeries: Yes ( X 1, ENDOMETRIAL ABLATION, DNC) Adenoidectomy, Section, Gallbladder, Tonsillectomy Respiratory: Yes Asthma Cardiac: No Neurological: Yes (As Child- No seizure since age 7.) Seizure Disorder Reproductive Disorders: Yes (MENORRHAGIA, DUB) Female Reproductive Disorders: Menstrual Problems, Endometriosis, 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 Sexually Transmitted Disease: No HIV/AIDS: No Genitourinary: No UTI-Chronic Gastrointestinal: Yes (REFLUX SOMETIMES) Gastroesophageal Reflux, Chronic Diarrhea Musculoskeletal: No Endocrine: Yes (MORBID OBESITY) Loss of Vision: Bilateral Hearing Impairment: Denies Cancer: No Psychosocial: Yes Anxiety Integumentary: No Blood Disorders: No Adverse Reaction/Blood Tranf: No (N/A) Family Medical History Reviewed Nursing Family Hx Congenital heart disease 09 BROTHER (brother was born with bicuspid valve and was unaware of this until had endocarditis at age 21) Family history: Allergy 03 FATHER (both father and pt have seasonal allergies) Heart disease 09 BROTHER (brother had endocarditis due to congital abnormality-onset at age 21) Hypercholesterolemia 03 FATHER (father has high cholesterol that started when he was 50) Stroke 09 BROTHER (brother had a stroke when he had endocarditis at age 21) No Family History of: Abdominal aortic aneurysm [place]'s disease Alcoholism Aphasia Cancer Cancer of colon Cataract Chest pain Congestive heart failure Cystic fibrosis Dementia Dysphagia Family history: Alzheimer's disease Family history: Arthritis Family history: Asthma Family history: Breast disease Family history: Cardiovascular disease Family history: Coronary thrombosis Family history: Diabetes mellitus Family history: Gastrointestinal disease Family history: Glaucoma Family history: Hypertension Family history: Osteoporosis Family history: Thyroid disorder Headache Hearing loss Hereditary disease History of - anemia History of - disorder History of - respiratory disease History of drug abuse Human immunodeficiency virus (HIV) seropositivity Infertile Kidney disease Malignant neoplasm of lung Myocardial infarction Parkinson's disease Prostate cancer Psychotic disorder Seizure disorder Tuberculosis Visual impairment No Pertinent Family Hx Physical Exam Vital Signs Vital Signs - First Documented 07/31/18 07/31/18 20:33 20:49 Temp 97.7 Pulse 99 Resp 18 B/P (MAP) 158/94 (115) Pulse Ox 100 O2 Delivery Room Air Capillary Refill : Less Than 3 Seconds Height, Weight, BMI Height: 5'9.00" Weight: 320lbs. 3.0oz. 145.864184cd; 52.3 BMI Method:Stated General Appearance: WD/WN, no apparent distress Cardiovascular: normal peripheral pulses, regular rate, rhythm, no edema, no gallop, no JVD, no murmur Respiratory: chest non-tender, no respiratory distress, no accessory muscle use , wheezing (throughout lung barillas) Extremities: normal range of motion, non-tender, normal inspection, no pedal edema, no calf tenderness, normal capillary refill Psychiatric: alert, oriented x 3, depressed affect Crainal Nerves: normal hearing, normal speech, PERRL Coordination/Gait: normal finger to nose, normal gait Skin: normal color, warm/dry Progress/Results/Core Measures Results/Orders Micro Results Microbiology 07/31/18 Influenza Types A,B Antigen (NANCY) - Final, Complete My Orders Orders - CJ CASTELLANOS Influenza A And B Antigens (07/31/18 20:40) Chest Pa/Lat (2 View) (07/31/18 20:40) Albuterol/Ipra Inhalation Soln (Duoneb I (07/31/18 20:45) Svn Small Volume Nebulizer (07/31/18 20:40) Ketorolac Injection (Toradol Injection) (07/31/18 20:45) Diphenhydramine Injection (Benadryl Inje (07/31/18 20:45) Prochlorperazine Injection (Compazine In (07/31/18 20:45) Rx-Albuterol Inhaler (Rx-Proair) (07/31/18 22:03) Medications Given in ED Vital Signs/I&O 07/31/18 07/31/18 07/31/18 20:33 20:49 22:14 Temp 97.7 97.7 Pulse 99 98 Resp 18 18 B/P (MAP) 158/94 (115) 145/89 (107) Pulse Ox 100 100 O2 Delivery Room Air Room Air Room Air Blood Pressure Mean: 115 Progress Progress Note : Time: 22:00 Progress Note I have seen and evaluated the patient. I've informed her of her laboratory and imaging studies. We will be treating for bronchitis with Levaquin, steroids and pro-air. Her wheezing has resolved after breathing treatments. Her pain has improved after medication administration. She agrees with plan of care, plans for discharge, return precautions were given. Diagnostic Imaging Diagonstic Imaging: Xray Plain Films/CT/US/NM/MRI: chest Comments NAME: KRISTINE ACOSTA [facility] REC#: [id number] PT STATUS: DEP ER : 1980 PHYSICIAN: CJ CASTELLANOS ADMIT DATE: 07/31/18/ER Draft Date of Exam:07/31/18 CHEST PA/LAT (2 VIEW) INDICATION: Cough and congestion. COMPARISON: 11/26/2013 FINDINGS: Frontal and lateral radiographic views of the chest were obtained. There are somewhat prominent perihilar interstitial opacities bilaterally. Otherwise, there is no large effusion or pneumothorax. Cardiac silhouette and pulmonary vasculature within normal limits. Bony structures show no gross acute abnormalities. IMPRESSION: 1. Subtle slightly prominent perihilar interstitial opacities bilaterally concerning for potential interstitial edema or interstitial pneumonia. May want to consider followup. Dictated on workstation # [id number] Dict: 07/31/18 2220 Trans: 07/31/18 2224 [facility] [id number] Interpreted by: MUNIRA NGUYEN MD Electronically signed by: Reviewed: Reviewed by Me Departure Impression Primary Impression: Bronchitis Additional Impressions: Sprain of cervical neck Migraine Disposition: HOME, SELF-CARE Condition: Stable/Unchanged Departure-Patient Inst. Decision time for Depature: 22:01 Referrals: CARLOZ COMER MD (PCP/Family) Primary Care Physician Patient Instructions: Acute Bronchitis, Adult (DC), Cervical Muscle Strain Add. Discharge Instructions: Take medications as directed. Follow-up with your primary care provider within 1 week for recheck. Return back to the emergency room for worsening symptoms or concerns as needed. Tylenol Motrin as directed by the bottle for pain relief. All discharge instructions reviewed with patient and/or family. Voiced understanding. Scripts Levofloxacin (Levaquin) 750 Mg Tablet 750 MG PO DAILY for 7 Days, #7 TAB Prov: CJ CASTELLANOS 07/31/18 Prednisone (Prednisone) 20 Mg Tab 40 MG PO DAILY for 4 Days, #8 TAB Prov: CJ CASTELLANOS 07/31/18 CJ CASTELLANOS Jul 31, 2018 21:53
[2018-07-31] MEDS ORDERED: PRD20T PO ×2 (22:03→22:12)
[2018-07-31] MEDS ORDERED: RX-ALBUTEROL INHALER (PROAIR) 8 GM IH STA (22:03)
[2018-07-31] MEDS ORDERED: LEVO750T9 PO ×2 (22:03→22:12)
[2018-07-31 22:14] VITALS: BP 145/89
--- NOTE | 2018-07-31 22:25 | Diagnostic Imaging Report ---
INDICATION: Cough and congestion. COMPARISON: 11/26/2013 FINDINGS: Frontal and lateral radiographic views of the chest were obtained. There are somewhat prominent perihilar interstitial opacities bilaterally. Otherwise, there is no large effusion or pneumothorax. Cardiac silhouette and pulmonary vasculature within normal limits. Bony structures show no gross acute abnormalities. IMPRESSION: 1. Subtle slightly prominent perihilar interstitial opacities bilaterally concerning for potential interstitial edema or interstitial pneumonia. May want to consider followup. Dictated by: Dictated on workstation # [id number]
== END 2018-07-31 22:15 | disposition home or self-care (01) ==
LOC: EDUNIT# 20:25 → ER 20:27
DX: S13.4XXA Sprain of ligaments of cervical spine, initial encounter (principal); G43.909 Migraine, unspecified, not intractable, without status migrainosus; J40 Bronchitis, not specified as acute or chronic; J45.909 Unspecified asthma, uncomplicated; G40.909 Epilepsy, unspecified, not intractable, without status epilepticus; K21.9 Gastro-esophageal reflux disease without esophagitis; E66.01 Morbid (severe) obesity due to excess calories; F41.9 Anxiety disorder, unspecified; F17.210 Nicotine dependence, cigarettes, uncomplicated; Z97.5 Presence of (intrauterine) contraceptive device; Z88.0 Allergy status to penicillin; Z68.42 Body mass index [BMI] 45.0-49.9, adult; Z82.49 Family history of ischemic heart disease and other diseases of the circulatory system; Z87.19 Personal history of other diseases of the digestive system; Z90.89 Acquired absence of other organs; Z98.890 Other specified postprocedural states; Z79.52 Long term (current) use of systemic steroids; X58.XXXA Exposure to other specified factors, initial encounter
CPT/HCPCS: 71046; 87804; 94640

== ENCOUNTER 2019-08-07 02:46 | Emergency (ER) | payer MEDICAID, OTHER ==
[~2019-08-07] VITALS: Ht 175 cm; Wt 136.1 kg
[~2019-08-07 02:46] MED LIST changes: +LEVO750T9 PO; +OMEP40CA27 PO; -OMEP40CA36 PO
--- OUTSIDE RECORDS SUMMARY | 2019-08-07 02:53 | XMS REPORT ---
Author Author Ilana KRAMER Organization [facility] Address [address] [place] [address] Care Team Providers Care Manager Route Name Role Phone MIQUEL KRAMER Unavailable PROBLEMS Type Condition ICD9-CM Code [id number] Code Onset Dates Condition S tatus SNOMED Code Problem Other and unspecified hyperlipidemia 272.4 Active 62732505 Problem Other specified hypoglycemia 251.1 A ctive 623295180 Problem DTAP TEST V06.1 Active Problem Cough 786.2 Active 59628295 Problem Acute bronchitis 466.0 Active 105 58454 Problem Dysthymic disorder 300.4 Active 7 8110646 ALLERGIES No Information ENCOUNTERS Encounter Location Date Diagnosis [facility] [address] [phone] Jul, Acute bronchitis, unspecifie d organism J20.9 and Morbid obesity E66.01 [facility] [address] [place] [phone] 07 May, 2018 Acute bronchitis, unspecifie d organism J20.9 and Acute upper respiratory infection J06.9 [facility] [address] [address] 16 May, 2017 Left foot pain M79.672 ; Swe lling of toe of left foot M79.89 ; Injury of left foot, initial encounter S99.922A and BMI 45.0-49.9, adult Z68.42 [facility] [address] [place] [phone] Dec, Acute non-recurrent maxillar y sinusitis J01.00 [facility] [address] [address] Nov, [facility] [address] [id number] [address] [place] [phone] 15 Nov, 2016 Bilateral knee pain M25.561 [facility] [address] [id number] [address] [place] [phone] 14 Mar, 2016 Pharyngitis due to other org anism J02.8 [facility] [address] [id number] [address] [place] [phone] Oct, Hip pain 719.45 and Sciatic nerve pain 724.3 [facility] [address] [id number] [address] [place] [phone] Jul, [facility] [address] [id number] [address] [place] [phone] Jul, [facility] [address] [id number] [address] [place] [phone] Jun, [facility] [address] [id number] [address] [place] [phone] Jun, [facility] [address] [id number] [address] [place] [phone] Jun, [facility] [address] [id number] [address] [place] [phone] Jun, [facility] [address] [facility] [id number] [address] [place] [phone] Jun, [facility] [address] [id number] [address] [place] [phone] Jun, [facility] [address] [id number] [address] [place] [phone] May, [facility] [address] [id number] [address] [place] [phone] May, [facility] [address] [id number] [address] [place] [phone] Apr, IMMUNIZATIONS No Known Immunizations SOCIAL HISTORY Never Assessed REASON FOR VISIT PLAN OF CARE VITAL SIGNS MEDICATIONS No Known Medications RESULTS No Results PROCEDURES Procedure Date Ordered Result Body Site COMPLETE CBC W/AUTO DIFF WBC July 10, 2014 ASSAY THYROID STIM HORMONE July 10, 2014 GLYCATED HEMOGLOBIN TEST July 10, 2014 LIPID PANEL July 10, 2014 COMPREHEN METABOLIC PANEL July 10, 2014 VENIPUNCT, ROUTINE* July 10, 2014 INSTRUCTIONS MEDICATIONS ADMINISTERED No Known Medications MEDICAL (GENERAL) HISTORY Type Description Date Medical History hyperlipdemia in past Medical History excessive insulin in past Medical History anxiety Medical History Endometriosis Medical History asthma Surgical History section Surgical History dilatation and curettage 02/2016 Surgical History endometrial ablation 02/2016
--- OUTSIDE RECORDS SUMMARY | 2019-08-07 02:53 | XMS REPORT ---
Author Author Ilana Kumari Doctor Organization [facility] Address Unknown Phone Unavailable Care Team Providers Care Director Furniture Name Role Phone Migration, Doctor Unavailable Unavailable PROBLEMS Type Condition ICD9-CM Code [id number] Code Onset Dates Condition S tatus SNOMED Code Problem Other and unspecified hyperlipidemia 272.4 Active 91188264 Problem Other specified hypoglycemia 251.1 A ctive 872670875 Problem DTAP TEST V06.1 Active Problem Cough 786.2 Active 49063922 Problem Acute bronchitis 466.0 Active 105 38702 Problem Dysthymic disorder 300.4 Active 7 8404281 ALLERGIES Substance Reaction Event Type Date Status Azithromycin Stomach cramps Drug Allergy Jul, Active Penicillins as a child Non Drug Allergy Jul, Active ENCOUNTERS Encounter Location Date Diagnosis [facility] [address] [place] [phone] Jul, Acute bronchitis, unspecifie d organism J20.9 and Morbid obesity E66.01 [facility] [address] [address] 07 May, 2018 Acute bronchitis, unspecifie d organism J20.9 and Acute upper respiratory infection J06.9 [facility] [place] [id number] [address] [place] [address] 16 May, 2017 Left foot pain M79.672 ; Swe lling of toe of left foot M79.89 ; Injury of left foot, initial encounter S99.922A and BMI 45.0-49.9, adult Z68.42 [facility] [address] [place] [phone] Dec, Acute non-recurrent maxillar y sinusitis J01.00 [facility] [address] [place], [place] [id number] [address] [place] [phone] Nov, [facility] [address] [id number] [address] [place] [phone] 15 Nov, 2016 Bilateral knee pain M25.561 [facility] [address] [id number] [address] [place] [phone] 14 Mar, 2016 Pharyngitis due to other org anism J02.8 [facility] [address] [id number] [address] [place] [phone] Oct, Hip pain 719.45 and Sciatic nerve pain 724.3 [facility] [address] [id number] [address] [place] [phone] Jul, [facility] [address] [id number] [address] [place] [phone] Jul, [facility] [address] [id number] [address] [place] [phone] Jun, [facility] [address] [id number] [address] [place] [phone] Jun, [facility] [address] [id number] [address] [place] [phone] Jun, [facility] [address] [id number] [address] [place] [phone] Jun, [facility] [address] [facility] [id number] [address] [place] [phone] Jun, [facility] [address] [id number] [address] [place] [phone] Jun, [facility] [address] [id number] [address] [place] [phone] May, [facility] [address] [id number] [address] [place] [phone] May, [facility] [address] [id number] [address] [place] [phone] Apr, IMMUNIZATIONS No Known Immunizations SOCIAL HISTORY Never Assessed REASON FOR VISIT EMR-Rubén PLAN OF CARE VITAL SIGNS MEDICATIONS Medication Instructions Dosage Frequency Start Date End Date Duration S tatus Celexa 40 mg take 1 tablet (40 mg) by oral route once daily May, Active Fish Oil 340-1,000 mg 1 Capsule 1 time per day May, 015 Active Doxycycline Hyclate 100 mg take 1 tablet (100 mg) by oral route 2 times per day for 7 days May, Active Levaquin 500 mg 1 tablet by Oral route every 24 hours for 10 days Jun, Active RESULTS No Results PROCEDURES No Known procedures INSTRUCTIONS MEDICATIONS ADMINISTERED No Known Medications MEDICAL (GENERAL) HISTORY Type Description Date Medical History hyperlipdemia in past Medical History excessive insulin in past Medical History anxiety Medical History Endometriosis Medical History asthma Surgical History section Surgical History dilatation and curettage 02/2016 Surgical History endometrial ablation 02/2016
--- OUTSIDE RECORDS SUMMARY | 2019-08-07 02:53 | XMS REPORT ---
Author Author Ilana KRAMER Organization [facility] Address [address] [place] [address] Care Team Providers Care Field Operations Supervisor Name Role Phone MIQUEL KRAMER Unavailable PROBLEMS Type Condition ICD9-CM Code [id number] Code Onset Dates Condition S tatus SNOMED Code Problem Other and unspecified hyperlipidemia 272.4 Active 51343390 Problem Other specified hypoglycemia 251.1 A ctive 564718085 Problem DTAP TEST V06.1 Active Problem Cough 786.2 Active 95553564 Problem Acute bronchitis 466.0 Active 105 64233 Problem Dysthymic disorder 300.4 Active 7 9427694 ALLERGIES No Information ENCOUNTERS Encounter Location Date Diagnosis [facility] [address] [address] Jul, Acute bronchitis, unspecifie d organism J20.9 and Morbid obesity E66.01 [facility] [address] [place] [phone] 07 May, 2018 Acute bronchitis, unspecifie d organism J20.9 and Acute upper respiratory infection J06.9 [facility] [address] [address] 16 May, 2017 Left foot pain M79.672 ; Swe lling of toe of left foot M79.89 ; Injury of left foot, initial encounter S99.922A and BMI 45.0-49.9, adult Z68.42 [facility] [address] [place] [phone] Dec, Acute non-recurrent maxillar y sinusitis J01.00 [facility] [address] [address] Nov, [facility] [address] [id number] [address] [place] [phone] 15 Nov, 2016 Bilateral knee pain M25.561 [facility] [address] [id number] [address] [place] [phone] 14 Mar, 2016 Pharyngitis due to other org anism J02.8 [facility] [address] [id number] [address] [place] [phone] Oct, Hip pain 719.45 and Sciatic nerve pain 724.3 [facility] [address] [id number] [address] [place] [phone] Jul, [facility] [address] [id number] [address] [place] [phone] Jul, [facility] [address] [id number] [address] [place] [phone] Jun, [facility] [address] [id number] [address] [place] [phone] Jun, [facility] [address] [id number] [address] [place] [phone] Jun, [facility] [address] [id number] [address] [place] [phone] Jun, [facility] [address] [facility] [id number] [address] [place] [phone] Jun, [facility] [address] [id number] [address] [place] [phone] Jun, [facility] [address] [id number] [address] [place] [phone] May, [facility] [address] [id number] [address] [place] [phone] May, [facility] [address] [id number] [address] [place] [phone] Apr, IMMUNIZATIONS No Known Immunizations SOCIAL HISTORY Never Assessed REASON FOR VISIT PLAN OF CARE VITAL SIGNS Height 69 in 2014-07-04 Weight 348.69 lbs 2014-07-04 Temperature 99.4 degrees Fahrenheit 2014-07-04 Heart Rate 90 bpm 2014-07-04 Respiratory Rate 22 2014-07-04 Blood pressure systolic 132 mmHg 2014-07-04 Blood pressure diastolic 84 mmHg 2014-07-04 MEDICATIONS No Known Medications RESULTS No Results PROCEDURES No Known procedures INSTRUCTIONS MEDICATIONS ADMINISTERED No Known Medications MEDICAL (GENERAL) HISTORY Type Description Date Medical History hyperlipdemia in past Medical History excessive insulin in past Medical History anxiety Medical History Endometriosis Medical History asthma Surgical History section Surgical History dilatation and curettage 02/2016 Surgical History endometrial ablation 02/2016
--- OUTSIDE RECORDS SUMMARY | 2019-08-07 02:53 | XMS REPORT | Continuity of Care Document ---
Author Organization Unknown Address Unknown Phone Unavailable Allergies Active Description Code Type Severity Reaction Onset Reported/Identified Relationship to Patient Clinical Status Yes Penicillins Drug Allergy N/A N/A 05/31/2014 Medications There is no data. Problems Date Dx Coded Attending Type Code Diagnosis Diagnosed By 11/08/2008 V74.1 SCRE ENING EXAMINATION FOR PULMONARY TUBERCULOSIS 11/08/2008 MARNIE PETTIT APRN V74.1 SCREENING EXAMINATION FOR PULMONARY TUBERCULOSIS 11/08/2008 EVANGELISTA MARIE DO V74.1 SCREENING EXAMINATION FOR PULMONARY TUBERCULOSIS 04/21/2012 V06.1 TDAP DX 04/21/2012 MARNIE PETTIT APRN V06.1 TDAP DX 04/21/2012 EVANGELISTA MARIE DO V06.1 TDAP DX 05/31/2014 MARNIE PETTIT APRN 786.2 COUGH 05/31/2014 EVANGELISTA MARIE DO 786.2 COUGH 07/04/2014 EVANGELISTA MARIE DO 251.1 OTHER SPECIFIED HYPOGLYCEMIA 07/04/2014 EVANGELISTA MARIE DO 272.4 OTHER AND UNSPECIFIED HYPERLIPIDEMIA 07/04/2014 EVANGELISTA MARIE DO 300.4 DYSTHYMIC DISORDER 07/04/2014 EVANGELISTA MARIE DO 466.0 BRONCHITIS, ACUTE Procedures Code Description [place] [address] INFL UENZA A & B (IN-HOUSE) 05/31/2014 74263 ROUT INE VENIPUNCTURE 07/10/2014 90882 A1C (IN-HOUSE) 07/10/2014 39460 CBC 07/10/2014 51313 CMP 07/10/2014 77146 LIPI D PANEL 07/10/2014 [id number] GF R CALC (RESULT ONLY) 07/10/2014 54317 TSH 07/10/2014 Results There is no data. Encounters ACCT No. Visit Date/Time Discharge Status Pt. Type Provider Facility Loc./Unit Complaint [id number] 07/10/2014 08:13:00 07/10/2014 23:59: 59 CLS Outpatient EVANGELISTA MARIE DO [id number] 05/31/2014 13:56:00 05/31/2014 23:59: 59 CLS Outpatient MARNIE PETTIT APRN [id number] 04/21/2012 11:48:00 04/21/2012 23:59: 59 CLS Outpatient [id number] 12/09/2018 14:15:00 12/09/2018 23:59:5 9 [facility] Outpatient MIQUEL KRAMER APRN [facility]
--- OUTSIDE RECORDS SUMMARY | 2019-08-07 02:53 | XMS REPORT ---
Author Author Ilana PETTIT Organization [facility] Address [address] [place] [address] Care Team Providers Care Senior It Business Analyst Name Role Phone MARNIE PETTIT Unavailable PROBLEMS Type Condition ICD9-CM Code [id number] Code Onset Dates Condition S tatus SNOMED Code Problem Other and unspecified hyperlipidemia 272.4 Active 65984084 Problem Other specified hypoglycemia 251.1 A ctive 246546035 Problem DTAP TEST V06.1 Active Problem Cough 786.2 Active 11090977 Problem Acute bronchitis 466.0 Active 105 18911 Problem Dysthymic disorder 300.4 Active 7 9226167 ALLERGIES No Information ENCOUNTERS Encounter Location Date Diagnosis [facility] [address] [place], [place] [id number] [address] [place] [phone] Jul, Acute bronchitis, unspecifie d organism J20.9 and Morbid obesity E66.01 [facility] [address] [place] [phone] 07 May, 2018 Acute bronchitis, unspecifie d organism J20.9 and Acute upper respiratory infection J06.9 [facility] [address] [place], [place] [id number] [address] [place] [id number] 16 May, 2017 Left foot pain M79.672 ; Swe lling of toe of left foot M79.89 ; Injury of left foot, initial encounter S99.922A and BMI 45.0-49.9, adult Z68.42 [facility] [address] [place] [phone] Dec, Acute non-recurrent maxillar y sinusitis J01.00 [facility] [address] [place] [place] [id number] [address] [place] [phone] Nov, [facility] [address] [id number] [address] [place] [phone] 15 Nov, 2016 Bilateral knee pain M25.561 [facility] [address] [id number] [address] [place] [phone] 14 Mar, 2016 Pharyngitis due to other org anism J02.8 [facility] [address] [id number] [address] [place] [phone] Oct, Hip pain 719.45 and Sciatic nerve pain 724.3 [facility] [address] [id number] [address] [place] [phone] Jul, [facility] [address] [id number] [address] [place] [phone] Jul, [facility] [address] [id number] [address] [place] [phone] Jun, [facility] [address] [id number] [address] [place] [phone] Jun, [facility] [address] [id number] [address] [place] [phone] Jun, [facility] [address] [id number] [address] [place] [phone] Jun, [facility] [address] [id number] [address] [place] [phone] Jun, [facility] [address] [id number] [address] [place] [phone] Jun, [facility] [address] [id number] [address] [place] [phone] May, [facility] [address] [id number] [address] [place] [phone] May, [facility] [address] [id number] [address] [place] [phone] Apr, IMMUNIZATIONS No Known Immunizations SOCIAL HISTORY Never Assessed REASON FOR VISIT PLAN OF CARE VITAL SIGNS Height 69 in 2014-05-31 Weight 349.8 lbs 2014-05-31 Temperature 98.8 degrees Fahrenheit 2014-05-31 Heart Rate 96 bpm 2014-05-31 Respiratory Rate 18 2014-05-31 Blood pressure systolic 124 mmHg 2014-05-31 Blood pressure diastolic 84 mmHg 2014-05-31 MEDICATIONS No Known Medications RESULTS No Results PROCEDURES Procedure Date Ordered Result Body Site INFLUENZA ASSAY W/OPTIC May 31, 2014 INSTRUCTIONS MEDICATIONS ADMINISTERED No Known Medications MEDICAL (GENERAL) HISTORY Type Description Date Medical History hyperlipdemia in past Medical History excessive insulin in past Medical History anxiety Medical History Endometriosis Medical History asthma Surgical History section Surgical History dilatation and curettage 02/2016 Surgical History endometrial ablation 02/2016
--- OUTSIDE RECORDS SUMMARY | 2019-08-07 02:53 | XMS REPORT ---
Author Author Ilana KRAMER Organization [facility] Address [address] [place] [address] Care Team Providers Care Fire Medic Name Role Phone MIQUEL KRAMER Unavailable PROBLEMS Type Condition ICD9-CM Code [id number] Code Onset Dates Condition S tatus SNOMED Code Problem Other and unspecified hyperlipidemia 272.4 Active 13064575 Problem Other specified hypoglycemia 251.1 A ctive 897637462 Problem DTAP TEST V06.1 Active Problem Cough 786.2 Active 16583663 Problem Acute bronchitis 466.0 Active 105 01788 Problem Dysthymic disorder 300.4 Active 7 4365558 ALLERGIES No Information ENCOUNTERS Encounter Location Date Diagnosis [facility] [address] [phone] Jul, Acute bronchitis, unspecifie d organism J20.9 and Morbid obesity E66.01 [facility] [address] [place] [phone] 07 May, 2018 Acute bronchitis, unspecifie d organism J20.9 and Acute upper respiratory infection J06.9 [facility] [address] [phone] 16 May, 2017 Left foot pain M79.672 ; Swe lling of toe of left foot M79.89 ; Injury of left foot, initial encounter S99.922A and BMI 45.0-49.9, adult Z68.42 [facility] [address] [place] [phone] Dec, Acute non-recurrent maxillar y sinusitis J01.00 [facility] [address] [phone] Nov, [facility] [address] [id number] [address] [place] [phone] 15 Nov, 2016 Bilateral knee pain M25.561 [facility] [address] [id number] [address] [place] [phone] 14 Mar, 2016 Pharyngitis due to other org anism J02.8 [facility] [address] [id number] [address] [place] [phone] Oct, Hip pain 719.45 and Sciatic nerve pain 724.3 [facility] [address] [id number] [address] [place] [phone] Jul, [facility] [address] [id number] [address] [place] [phone] Jul, [facility] [address] [id number] [address] [place] [phone] Jun, [facility] [address] [id number] [address] [place] [phone] Jun, [facility] [address] [id number] [address] [place] [phone] Jun, [facility] [address] [id number] [address] [place] [phone] Jun, [facility] [address] [facility] [id number] [address] [place] [phone] Jun, [facility] [address] [id number] [address] [place] [phone] Jun, [facility] [address] [id number] [address] [place] [phone] May, [facility] [address] [id number] [address] [place] [phone] May, [facility] [address] [id number] [address] [place] [phone] Apr, IMMUNIZATIONS No Known Immunizations SOCIAL HISTORY [...]
--- OUTSIDE RECORDS SUMMARY | 2019-08-07 02:53 | XMS REPORT ---
Author Author [facility] Organization [facility] Address [address] [address] Care Team Providers Care Deli/Bakery Associate Name Role Phone CARLOZ COMER Unavailable YOUSIF CONNOLLY Unavailable YOUSIF CONNOLLY Unavailable KSENIA SAHU DO Unavailable Unavailable CITLALY BONE Unavailable Unavailable Migration, Doctor Unavailable Unavailable CARLOZ COMER MD Unavailable Unavailable Migration, Doctor Unavailable Unavailable MARNIE PETTIT Unavailable MADL, MIQUEL Unavailable MADL, MIQUEL Unavailable MADL, MIQUEL Unavailable MADL, MIQUEL KODI Unavailable Unavailable Allergies The data below is from unstructured sources No Information No Information No Information No Information No Information No Information No Information No Information No Information Medications Medication Ingredient Drug Dose Dates Status Sig Sig Care Class(es) (Normalized) (Original) Provid er citalopram Citalopram Serotonin 40 mg 05-31-19 Active take 1 Ce cal 40 mg no 40 mg oral Translation Reuptake 15 tablet by take 1 na me tablet (1 s: [ Celexa Inhibitor mouth once tablet (40 (no source.) 40 mg] daily mg) by oral phone) route once daily May, Active no Fish Oils no 05-31-19 Active no Fish Oil no information information 15 information 340-1,000 mg na me (1 source.) 1 Capsule 1 (no time per day phone) May, Active levoFLOXaci levoFLOXaci Quinolone 500 mg 07-05-19 Active take 1 Levaquin 500 no n 500 mg n Antimicrobi 15 tablet by mg 1 tablet n hazel oral tablet Translation al mouth every by Oral (no (1 source.) s: [ twenty-four route every phone) Levaquin hours 24 hours for 500 mg] 10 days Jun, Active Problems Active Problems Problem Normalized Date of Normalized Normalized Provider Fac ility Classification Problem(s) Problem Problem Problem Sta tus Onset/Resoluti Duration on Other liver Fatty (change Chronic Active CITLALY Not Av ailable diseases (3 of) liver, not KRISTA SCHMITT (45024) sources.) elsewhere classified Other Morbid Chronic Active Doctor [facility] nutritional; (severe) [facility] endocrine; and obesity due to of [facility] metabolic excess [place] ([address]) disorders (6 calories sources.) Translations: [ - Morbid obesity E66.01] Other Other Episodic Active Doctor [facility] connective specified soft [facility] tissue disease tissue of [facility] (6 sources.) disorders [place] ([address]) Translations: [ - Swelling of toe of left foot M79.89] Other Pain in right Episodic Active COCO WARREN Not Available non-traumatic knee (19432) joint Translations: disorders (7 [ - Bilateral sources.) knee pain M25.561] Past or Other Problems Problem Normalized Date of Normalized Normalized Provider Fac ility Classification Problem(s) Problem Problem Problem Sta tus Onset/Resoluti Duration on Residual Acquired Episodic Completed CITLALY Not Available codes; absence of KRISTA SCHMITT (68797) unclassified other (3 sources.) specified parts of digestive tract Other Pain in left Episodic Completed CARLOZ SCHOELING Not Available non-traumatic MD david (26929) joint disorders (2 sources.) Other Pain in left Episodic Completed COCO WARREN Not Available non-traumatic knee (40250) joint disorders (1 source.) Other Pain in right Episodic Completed CARLOZ SCHOELING Not Available non-traumatic MD david (96047) joint disorders (2 sources.) Contraceptive Presence of Episodic Completed CITLALY Not Av ailable and (intrauterine) KRISTA SCHMITT (80771) procreative contraceptive management (3 device sources.) Abdominal Umbilical Episodic Completed CITLALY Not Availabl e hernia (3 hernia without KRISTA SCHMITT (55685) sources.) obstruction or gangrene Procedures Procedure Normalized Procedure Procedure Result Performer Facility Date 07-10-2014 Assay of thyroid no information no name (no phone) [facility] stimulating hormone [facility] ([id number]) 07-10-2014 Blood count complete no information no name (no margo ne) [facility] auto&auto difrntl wbc [facility] (04795) 07-10-2014 Collection venous no information no name (no phone) [facility] blood venipuncture [facility] (73858) 07-10-2014 Comprehensive no information no name (no phone[facility] (16744) 07-10-2014 Hemoglobin no information no name (no phone) [facility] glycosylated a1c [facility] ([id number]) 05-31-2014 [facility] influenza no information no name (no phon e) [facility] [place] [facility] ([address]109) 07-10-2014 Lipid panel no information no name (no phone) [facility] (82616) Immunizations The data below is from unstructured sourcesNo immunization records.No immunization records.No immunization records.No immunization records.No immunization records. No Known Immunizations No Known Immunizations No Known Immunizations No Known Immunizations No Known Immunizations No Known Immunizations No Known Immunizations No Known Immunizations No Known Immunizations No Known Immunizations No Known Immunizations No Known Immunizations No Known Immunizations No Known Immunizations Results The data below is from unstructured sources No Results No Results No Results No Results No Results No Results No Results No Results No Results No Results No Results No Results No Results No Results No Results Vital Signs Vital Sign Value Interpretation Reference Date Time Care [facility] ider Facility (Normalized) (Normalized) Range Body 99.4 [degF] (no code) 97.8 - 99.0 07-04-2014 [facility] Temperature [degF] 14:56-[address] [place] [address] ([id number]) Body 98.8 [degF] (no code) 97.8 - 99.0 05-31-2014 [facility] Temperature [degF] 13:56-[address] [place] [address] ([id number]) Body weight 158.17 kg (no code) kg 07-04-2014 [facility] 14:56-[address] [place] [address] ([id number]) Body weight 158.67 kg (no code) kg 05-31-2014 MARNIE [facility] 13:56-[address] [place] [address] ([id number]) Height 175.26 cm (no code) cm 07-04-2014 MIQUEL [facility] 14:56-0475 [address] [facility] (50710) Height 175.26 cm (no code) cm 05-31-2014 MARNIE saeed 13:56-[id number] [place] [address] ([id number]) Interventions No Information Plan of Treatment The data below is from unstructured sources Discharge Date 02/26/16 1:05pm Prescriptions See Medication Section Discharge Date 02/29/16 3:15pm Instructions/Education Provided ANES THESIA INSTRUCTIONS POSTOP Prescriptions See Medication Section Discharge Date 05/28/16 8:52pm Disposition 01 HOME, SELF-CARE Condition at Discharge Improved Instructions/Education Provided Radi culopathy (DC) Prescriptions See Medication Section Referrals CARLOZ COMER MD - [facility] Additional Instructions/Education Al l discharge instructions reviewed with patient and/or family. [...] bladder incontinence, fever, or any other concerns. Discharge Date 01/15/15 11:02pm Disposition 01 HOME, SELF-CARE Condition at Discharge Stable Instructions/Education Provided Urin amos Tract Infection in Women (ED) Gastroenteritis (ED) Prescriptions See Medication Section Referrals CARLOZ COMER MD - [facility] Additional Instructions/Education CL EAR LIQUIDS--WATER, BROTH, JELLO, GATORADE BRATS DIET--BANANAS, RICE, APPLESAUCE, TOAST, SALTINES ACIDOPHILUS 2 PILLS 4 TIMES A DAY UNTIL YOU ARE WELL FOLLOW UP WITH YOUR DR IN 2-3 DAYS IF NO BETTER All discharge instructions reviewed with patient and/or family. Voiced understanding. Goals No Information Social History No Information Functional Status The data below is from unstructured sourcesNo functional status results.No functional status results.No functional status results.No functional status results.No functional status results.No functional status results.No functional status results. Mental Status No Information Encounters Encounter Normalized Encounter Encounter Diagnosis Care Provi reji Organization Date Type 07-27-2018 (WALK-IN) Walk-In Care Acute bronchitis, CRISS ALBERTO HIA (no [facility] - unspecified phone) CARE (no phone) 07-27-2018 - 07-27-2018 05-27-2018 (WALK-IN) Walk-In Care Acute bronchitis, [facility] ALBERTO [facility]IA (no [facility] - unspecified phone) CARE (no phone) 05-27-2018 - 05-27-2018 06-05-2017 Patient encounter no information no name (no phone) no organization name (no phone) 12-09-2018 Patient encounter no information no name (no phone) no organization name procedure (no phone) 07-27-2018 Patient encounter no information no name (no phone) no organization name procedure (no phone) 05-27-2018 Patient encounter no information no name (no phone) no organization name procedure (no phone) 12-02-2016 Patient encounter no information no name (no phone) no organization name procedure (no phone) 06-05-2016 Patient encounter no information no name (no phone) no organization name procedure (no phone) 05-28-2016 Patient encounter no information no name (no phone) no organization name procedure (no phone) Medical Equipment No Information Payers No Information Advance Directives Directive Response Recor ded Date/Time Advance Directives No 11:48am Health Care Power of Marketing Planning Manager No 02/26/16 11:48am Organ Donor No 02/26/16 11:48am Resuscitation Status Full Code 02/26/16 11:48am Directive Response Recor ded Date/Time Advance Directives No 11:28am Health Care Power of Marketing Planning Manager No 02/29/16 11:28am Organ Donor No 02/29/16 11:28am Resuscitation Status Full Code 02/29/16 11:28am Directive Response Recor ded Date/Time Advance Directives No 7:04pm Health Care Power of Marketing Planning Manager No 05/28/16 7:04pm Organ Donor No 05/28/16 7:04pm Resuscitation Status Full Code 05/28/16 7:04pm Directive Response Recor ded Date/Time Advance Directives No 8:32pm Health Care Power of Marketing Planning Manager No 01/15/15 8:32pm Organ Donor No 01/15/15 8:32pm Resuscitation Status Full Code 01/15/15 8:32pm Discharge Instructions No hospital discharge instructions. Patient Instructions Physician Instructions New, Converted or [...] period). Care Plan Patient Instructions:: as directed No hospital discharge instructions.No hospital discharge instructions. Additional Source Comments This clinical document has been generated using Lift software that has been certified by the Office of the National Coordinator for Health Information Technology (ONC 15.99.04.3023.Diam.31.00.0.135020) and the National Committee for [employer] (NCQA, as an eMeasure certified technology). FOR RECORDS PERTAINING TO PATIENTS WHO ARE OR HAVE BEEN ENROLLED IN A CHEMICAL D EPENDENCY/SUBSTANCE ABUSE PROGRAM, SOME INFORMATION MAY BE OMITTED. This clinica l summary was aggregated from multiple sources. Caution should be exercised in using it in the provision of clinical care. This summary normalizes information from multiple sources, and as a consequence, information in this document may ma terially change the coding, format and clinical context of patient data. In tremaine tion, data may be omitted in some cases. CLINICAL DECISIONS SHOULD BE BASED ON T HE PRIMARY CLINICAL RECORDS. [employer] provides no warranty or guara ntee of the accuracy or completeness of information in this document.The followi ng information is based on time limited clinical information UNRECOGNIZED CONTENT PROVIDED BELOW FOR UNRECOGNIZED SECTION MEDICAL (GENERAL) HISTORY Type Description Date Medical History hyperlipdemia in past Medical History excessive insulin in past Medical History anxiety Medical History Endometriosis Medical History asthma Surgical History section Surgical History dilatation and curettage 02/2016 Surgical History endometrial ablation 02/2016 UNRECOGNIZED CONTENT PROVIDED BELOW FOR UNRECOGNIZED SECTION REASON FOR VISIT [id number]
--- OUTSIDE RECORDS SUMMARY | 2019-08-07 02:53 | XMS REPORT ---
Author Author Ilana Kumari Doctor Organization [facility] Address Unknown Phone Unavailable Care Team Providers Care Customer Experience Manager Name Role Phone Migration, Doctor Unavailable Unavailable PROBLEMS Type Condition ICD9-CM Code [id number] Code Onset Dates Condition S tatus SNOMED Code Problem Other and unspecified hyperlipidemia 272.4 Active 83160505 Problem Other specified hypoglycemia 251.1 A ctive 325508553 Problem DTAP TEST V06.1 Active Problem Cough 786.2 Active 45209866 Problem Acute bronchitis 466.0 Active 105 06684 Problem Dysthymic disorder 300.4 Active 7 [id number] ALLERGIES No Information ENCOUNTERS Encounter Location Date Diagnosis [facility] [address] [id number] 09 Jul, 2018 Acute bronchitis, unspecifie d organism J20.9 and Morbid obesity E66.01 [facility] [address] [phone] 07 May, 2018 Acute bronchitis, unspecifie d organism J20.9 and Acute upper respiratory infection J06.9 [facility] [address] [id number] [address] [place] [phone] 16 May, 2017 Left foot pain M79.672 ; Swe lling of toe of left foot M79.89 ; Injury of left foot, initial encounter S99.922A and BMI 45.0-49.9, adult Z68.42 [facility] [address] [id number] [address] [place] [phone] Dec, Acute non-recurrent maxillar y sinusitis J01.00 [facility] [place] [address] [id number] [address] [place] [phone] Nov, [facility] [address] [phone] Nov, Bilateral knee pain M25.561 [facility] [address] [id number] [address] [place] [phone] 14 Mar, 2016 Pharyngitis due to other org anism J02.8 [facility] [place] [address] [id number] [address] [place] [phone] Oct, Hip pain 719.45 and Sciatic nerve pain 724.3 [facility] [place] [address] [id number] [address] [place] [phone] Jul, [facility] [place] [address] [id number] [address] [place] [phone] Jul, [facility] [place] [address] [id number] [address] [place] [phone] Jun, [facility] [place] [address] [id number] [address] [place] [phone] Jun, [facility] [place] [address] [id number] [address] [place] [phone] Jun, [facility] [place] [address] [id number] [address] [place] [phone] Jun, [facility] [place] [address] [id number] [address] [place] [phone] Jun, [facility] [place] [address] [id number] [address] [place] [phone] Jun, [facility] [place] [address] [id number] [address] [place] [phone] May, [facility] [place] [address] [id number] [address] [place] [phone] May, [facility] [place] [address] [id number] [address] [place] [phone] Apr, IMMUNIZATIONS No Known Immunizations SOCIAL HISTORY Never Assessed REASON FOR VISIT EMR-[facility] PLAN OF CARE VITAL SIGNS MEDICATIONS No [...]
[2019-08-07] MEDS ORDERED: LIDOCAINE/EPI 2% 1:100,00 (XYLOCAINE) 20 ML VIAL ONE (03:31)
[2019-08-07] MEDS ORDERED: RX-TRIMETH/SULFA. 160-800 MG (BACTRIM DS) TAB PPK#2 PO STA (03:43)
[2019-08-07] MEDS ORDERED: LIDOCAINE/EPI 1%-1:100,000 (XYLOCAINE) 20ML INJ ONE (03:45)
[2019-08-07] MEDS ORDERED: TETANUS,DIPTH,PERTUSS P/F (BOOSTRIX) 0.5 ML VIAL IM ONE (03:45)
[2019-08-07] MEDS ORDERED: SULF1TAB35 PO (03:48)
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
[2019-08-07 04:04] VITALS: BP 123/84
== END 2019-08-07 04:04 | disposition home or self-care (01) ==
LOC: EDUNIT# 02:46 → ER 02:48
DX: S09.90XA Unspecified injury of head, initial encounter (principal); S01.01XA Laceration without foreign body of scalp, initial encounter; J45.909 Unspecified asthma, uncomplicated; F41.9 Anxiety disorder, unspecified; E66.01 Morbid (severe) obesity due to excess calories; R40.2142 Coma scale, eyes open, spontaneous, at arrival to emergency department; R40.2242 Coma scale, best verbal response, confused conversation, at arrival to emergency department; R40.2362 Coma scale, best motor response, obeys commands, at arrival to emergency department; Z23 Encounter for immunization; Z82.49 Family history of ischemic heart disease and other diseases of the circulatory system; Z88.0 Allergy status to penicillin; Z79.52 Long term (current) use of systemic steroids; W20.8XXA Other cause of strike by thrown, projected or falling object, initial encounter
CPT/HCPCS: 90715; 99284

== ENCOUNTER 2019-08-16 09:01 | Emergency (ER) | payer MEDICAID ==
[~2019-08-16] VITALS: Ht 175 cm; Wt 136.1 kg
--- OUTSIDE RECORDS SUMMARY | 2019-08-16 09:11 | XMS REPORT ---
Author Author [facility] Organization [facility] Address [address] [address] Care Team Providers Care Bus Steward Name Role Phone CARLOZ COMER Unavailable YOUSIF [...] diseases (3 of) liver, not KRISTA SCHMITT (86648) sources.) elsewhere classified Other Morbid Chronic [facility] nutritional; (severe) [facility] endocrine; and obesity due to of [facility] metabolic excess [place] (11184) disorders (6 calories sources.) Translations: [ - Morbid obesity E66.01] Other Other Episodic [facility] connective specified soft [facility] tissue disease tissue of [facility] (6 sources.) disorders [place] ([address]782) Translations: [ - Swelling of toe of left foot M79.89] Other Pain in right Episodic Active COCO WARREN Not Available non-traumatic knee (00902) joint Translations: disorders (7 [ - Bilateral sources.) knee pain M25.561] Past or Other Problems Problem Normalized Date of Normalized Normalized Provider Fac ility Classification Problem(s) Problem Problem Problem Sta tus Onset/Resoluti Duration on Residual Acquired Episodic Completed CITLALY Not Available codes; absence of KRISTA SCHMITT (31965) unclassified other (3 sources.) specified parts of digestive tract Other Pain in left Episodic Completed CARLOZ SCHOELING Not Available non-traumatic MD david (27967) joint disorders (2 sources.) Other Pain in left Episodic Completed COCO WARREN Not Available non-traumatic knee (69981) joint disorders (1 source.) Other Pain in right Episodic Completed CARLOZ SCHOELING Not Available non-traumatic MD david (06782) joint disorders (2 sources.) Contraceptive Presence of Episodic Completed CITLALY Not Av ailable and (intrauterine) KRISTA SCHMITT (33171) procreative contraceptive management (3 device sources.) Abdominal Umbilical Episodic Completed CITLALY Not Availabl e hernia (3 hernia without KRISTA SCHMITT (75986) sources.) obstruction or gangrene Procedures Procedure Normalized Procedure Procedure Result Performer Facility Date 07-10-2014 Assay of thyroid no information no name (no phone) [facility] stimulating hormone [facility] ([id number]) 07-10-2014 Blood count complete no information no name (no margo ne) [facility] auto&auto difrntl wbc [facility] (55721) 07-10-2014 Collection venous no information no name (no phone) [facility] blood venipuncture [facility] (49385) 07-10-2014 Comprehensive no information no name (no phone) [facility] ([id number]) 07-10-2014 Hemoglobin no information no name (no phone) [facility] glycosylated a1c [facility] (47116) 05-31-2014 [facility]oo influenza no information no name (no phon e) [facility] (53150) 07-10-2014 Lipid panel no information no name (no phone) [facility] (74339) Immunizations The data below is from unstructured [...] Sign Value Interpretation Reference Date Time Care [facility] ider Facility (Normalized) (Normalized) Range Body 99.4 [degF] (no code) 97.8 - 99.0 07-04-2014 [facility] Temperature [degF] 14:56-[address] [place] [address] ([address]) Body 98.8 [degF] (no code) 97.8 - 99.0 05-31-2014 [facility] Temperature [degF] 13:56-[address] [place] [address] ([id number]) Body weight 158.17 kg (no code) kg 07-04-2014 [facility] 14:56-[address] [place] [address] ([id number]) Body weight 158.67 kg (no code) kg 05-31-2014 MARNIE [facility] 13:56-[address] [place] [address] ([id number]) Height 175.26 cm (no code) cm 07-04-2014 MIQUEL [facility] 14:56-6092 [address] [facility] (40110) Height 175.26 cm (no code) cm 05-31-2014 MARNIE saeed 13:56-[address] [place] [address] ([id number]) Interventions No Information Plan of Treatment The data below is from unstructured sources Discharge Date 02/26/16 1:05pm Prescriptions See Medication Section Discharge Date 02/29/16 3:15pm Instructions/Education Provided ANES THESIA INSTRUCTIONS POSTOP Prescriptions See Medication Section Discharge Date 05/28/16 8:52pm Disposition 01 HOME, SELF-CARE Condition at Discharge Improved Instructions/Education Provided Radi culopathy (DC) Prescriptions See Medication Section Referrals CARLOZ COMER MD - [facility] Physician Additional Instructions/Education Al l discharge instructions [...] Medication Section Referrals CARLOZ COMER MD - [facility] Physician Additional Instructions/Education CL EAR LIQUIDS--WATER, BROTH, [...] Directives No 11:48am Health Care Power of Gem Cutter No 02/26/16 11:48am Organ Donor No 02/26/16 11:48am Resuscitation Status Full Code 02/26/16 11:48am Directive Response Recor ded Date/Time Advance Directives No 11:28am Health Care Power of Gem Cutter No 02/29/16 11:28am Organ Donor No 02/29/16 11:28am Resuscitation Status Full Code 02/29/16 11:28am Directive Response Recor ded Date/Time Advance Directives No 7:04pm Health Care Power of Gem Cutter No 05/28/16 7:04pm Organ Donor No 05/28/16 7:04pm Resuscitation Status Full Code 05/28/16 7:04pm Directive Response Recor ded Date/Time Advance Directives No 8:32pm Health Care Power of Gem Cutter No 01/15/15 8:32pm Organ Donor No 01/15/15 [...] This clinical document has been generated using [employer] software that has been certified by the Office of the National Coordinator for Health Information Technology (ONC 15.99.04.3023.Diam.31.00.0.277612) and the National Committee for Data Collection Technician (NCQA, as an eMeasure certified technology). FOR [...] BASED ON T HE PRIMARY CLINICAL RECORDS. [employer]. provides no warranty or guara ntee of [...] BELOW FOR UNRECOGNIZED SECTION REASON FOR VISIT [id number]
--- OUTSIDE RECORDS SUMMARY | 2019-08-16 09:12 | XMS REPORT | Continuity of Care Document ---
[...] Code Description [place] [address] INFL UENZA A & B (IN-HOUSE) 05/31/2014 25972 ROUT INE VENIPUNCTURE 07/10/2014 07472 A1C (IN-HOUSE) 07/10/2014 32675 CBC 07/10/2014 17240 CMP 07/10/2014 90300 LIPI D PANEL 07/10/2014 [id number] GF R CALC (RESULT ONLY) 07/10/2014 25805 TSH 07/10/2014 Results There is no data. Encounters ACCT No. Visit Date/Time Discharge Status Pt. Type Provider Facility Loc./Unit Complaint [id number] 07/10/2014 08:13:00 07/10/2014 23:59: 59 CLS Outpatient EVANGELISTA MARIE DO [id number] 05/31/2014 13:56:00 05/31/2014 23:59: 59 CLS Outpatient MARNIE PETTIT APRN [id number] 04/21/2012 11:48:00 04/21/2012 23:59: 59 CLS Outpatient [id number] 12/09/2018 14:15:00 12/09/2018 23:59:5 9 [facility] Outpatient MIQUEL KRAMER APRN [facility]
[2019-08-16 09:22] VITALS: BP 120/72
== END 2019-08-16 09:21 | disposition home or self-care (01) ==
LOC: EDUNIT# 09:01 → ER 09:02
DX: S01.81XD Laceration without foreign body of other part of head, subsequent encounter (principal); X58.XXXD Exposure to other specified factors, subsequent encounter

== ENCOUNTER 2019-11-22 20:59 | Emergency (ER) | payer MEDICAID ==
[~2019-11-22] VITALS: Ht 177.8 cm; Wt 133.2 kg
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
--- OUTSIDE RECORDS SUMMARY | 2019-11-22 22:36 | XMS REPORT | Continuity of Care Document ---
[...] Code Description [place] [address] INFL UENZA A & B (IN-HOUSE) 05/31/2014 96969 ROUT INE VENIPUNCTURE 07/10/2014 25701 A1C (IN-HOUSE) 07/10/2014 32390 CBC 07/10/2014 17387 CMP 07/10/2014 71487 LIPI D PANEL 07/10/2014 [id number] GF R CALC (RESULT ONLY) 07/10/2014 37027 TSH 07/10/2014 Results There is no data. Encounters ACCT No. Visit Date/Time Discharge Status Pt. Type Provider Facility Loc./Unit Complaint [id number] 07/10/2014 08:13:00 07/10/2014 23:59: 59 CLS Outpatient EVANGELISTA MARIE DO [id number] 05/31/2014 13:56:00 05/31/2014 23:59: 59 CLS Outpatient MARNIE PETTIT APRN [id number] 04/21/2012 11:48:00 04/21/2012 23:59: 59 CLS Outpatient [id number] 11/18/2019 11:00:00 11/18/2019 23:59:5 9 CLS Outpatient LAKISHA LOPEZ [facility]
--- OUTSIDE RECORDS SUMMARY | 2019-11-22 22:36 | XMS REPORT ---
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[facility] [place] [employer] [facility] [employer] Address [address] [address] Care Team Providers Care Program Clinician Name Role Phone CARLOZ COMER Unavailable YOUSIF CONNOLLY Unavailable YOUSIF CONNOLLY Unavailable KSENIA SAHU DO Unavailable Unavailable CITLALY BONE Unavailable Unavailable Migration, Doctor Unavailable Unavailable CARLOZ COMER MD Unavailable Unavailable Migration, Doctor Unavailable Unavailable MARNIE PETTIT Unavailable MADL, MIQUEL Unavailable MADL, MIQUEL Unavailable MADL, MIQUEL Unavailable MADL, MIQUEL KODI Unavailable Unavailable PCP, NONE Unavailable Unavailable Unavailable Unavailable Unavailable Unavailable Allergies The data below is from unstructured sources No Information No Information No Information No Information No Information No Information No Information No Information No Information Encounters Encounter Date Encounter Type Encounter Diagnosis Care Provider Facility Start: Patient encounter NONE PCP Critical access hospital 11-18-2019 procedure [facility] ([id number]) [facility]: [facility] ([id number]) Start: [facility] Acute bronchitis, CRISS LEI [facility] 07-27-2018 CARE unspecified CARE Start: Patient encounter MIQUEL MADL Critical access hospital 05-27-2018 procedure [facility] ([id number]) Start: [facility] Acute bronchitis, CRISS LEI [facility] 05-27-2018 CARE unspecified CARE Start: Patient encounter 06-05-2017 procedure Start: Patient encounter COCO KELLEY Not [facility] ([id number]) 12-02-2016 procedure Start: Patient encounter CARLOZ COMER MD Not [facility] ([id number]) 06-05-2016 procedure Start: Patient encounter CITLALY VELASCO Not [facility] ([id number]) 05-28-2016 procedure Medical Equipment No Information Goals No Information Immunizations The data below is from unstructured sourcesNo immunization records.No immunization records.No immunization records.No immunization records.No immunization records. No Known Immunizations No Known Immunizations No Known Immunizations No Known Immunizations No Known Immunizations No Known Immunizations No Known Immunizations No Known Immunizations No Known Immunizations No Known Immunizations No Known Immunizations No Known Immunizations No Known Immunizations No Known Immunizations Interventions No Information Medications Medication Drug Dates Sig Sig (Original) Class(es) (Normalized) citalopram 40 mg oral Serotonin Start: take 1 tablet Ce cal 40 mg take 1 tablet (40 mg) by tablet Reuptake 05-31-2014 by mouth once oral route o nce daily May, (1 source) Inhibitor daily Active Fish Oils Start: Fish Oil 340-1,000 mg 1 Capsule 1 time (1 source) 05-31-2014 per day May, 5 Active levoFLOXacin 500 mg oral Quinolone Start: take 1 tablet Levaquin 500 mg 1 tablet by Oral route tablet Antimicrob 07-04-2014 by mouth every every 24 ho urs for 10 days Jun, (1 source) ial twenty-four Active hours Payers No Information Plan of Treatment The data below is from unstructured sources Discharge Date 02/26/16 1:05pm Prescriptions See Medication Section Discharge Date 02/29/16 3:15pm Instructions/Education Provided ANES THESIA INSTRUCTIONS POSTOP Prescriptions See Medication Section Discharge Date 05/28/16 8:52pm Disposition 01 HOME, SELF-CARE Condition at Discharge Improved Instructions/Education Provided Radi culopathy (DC) Prescriptions See Medication Section Referrals CARLOZ COMER MD - [facility] Physician Additional Instructions/Education Al l discharge [...] Medication Section Referrals CARLOZ COMER MD - [facility] Physician Additional Instructions/Education CL EAR LIQUIDS--WATER, BROTH, JELLO, GATORADE BRATS DIET--BANANAS, RICE, APPLESAUCE, TOAST, SALTINES ACIDOPHILUS 2 PILLS 4 TIMES A DAY UNTIL YOU ARE WELL FOLLOW UP WITH YOUR DR IN 2-3 DAYS IF NO BETTER All discharge instructions reviewed with patient and/or family. Voiced understanding. Problems Active Problems Problem Problem Date Last Documented Episodic/Chr Provider Classificati Recorded Date onic on Other liver Fatty (change of) liver, not Chronic CITLALY diseases elsewhere classified KESHIA VELASCO (3 sources) Other Morbid (severe) obesity due to Chronic Doctor nutritional; excess calories ; Translations: [ - Migration endocrine; Morbid obesity E66.01] and metabolic disorders (6 sources) Past or Other Problems Problem Problem Date Last Documented Episodic/Chr Provider Classificati Recorded Date onic on Abdominal Umbilical hernia without Episodic GRE TCHEN hernia obstruction or gangrene KESHIA VELASCO (3 sources) Contraceptiv Presence of (intrauterine) Episodic G RETCHEN e and contraceptive device KESHIA VELASCO procreative management (3 sources) Other Pain in left knee Episodic COCO non-traumati WARREN c joint disorders (1 source) Other Pain in left hip Episodic CARLOZ non-traumati NAHOMI agudelo joint disorders (2 sources) Other Pain in right hip Episodic CARLOZ non-traumati NAHOMI agudelo joint disorders (2 sources) Residual Acquired absence of other specified Episodic CITLALY codes; parts of digestive tract KESHIA VELASCO unclassified (3 sources) Procedures Date Procedure Procedure Detail Performing Cl inician Start: Assay of thyroid [facility] 07-10-2014 stimulating Other Phone: hormone tsh Start: Blood count [facility] 07-10-2014 complete auto&auto Other difrntl wbc Start: Collection venous [facility] 07-10-2014 blood venipuncture Other Start: Comprehensive [facility] 07-10-2014 metabolic panel Other Phone: Start: Hemoglobin [facility] 07-10-2014 glycosylated a1c Other Phone: Start: Lipid panel [facility] 07-10-2014 Other Start: Jhonerma PETTIT 05-31-2014 influenza Other Phone: Results The data below is from unstructured sources Test Name Collection Date/Time No Results Social History No Information Vital Signs Date Time Vital Sign Value Performing Clinician Facil ity 07-04-2014 Body height 175.26 cm [facility] [id number] Other Phone: [facility] [place] ([id number]) 07-04-2014 Body temperature 99.4 [degF] [facility] 14:56-0400 Other Phone: [facility] [place] ([id number]) 07-04-2014 Body weight 158.17 kg [facility] 14:56-0400 Other Phone: [facility] [place] ([id number]) 05-31-2014 Body height 175.26 cm MARNIE PETTIT [facility] [employer] 13:56-0500 Other Phone: [facility] [place] ([id number]) 05-31-2014 Body temperature 98.8 [degF] MARNIE WILVER [facility] 13:56-0500 Other Phone: [facility] [place] ([id number]) 05-31-2014 Body weight 158.67 kg MARNIE PETTIT [facility] 13:56-0500 Other Phone: [facility] [place] ([id number]) Functional Status The data below is from unstructured sourcesNo functional status results.No functional status results.No functional status results.No functional status results.No functional status results.No functional status results.No functional status results. Mental Status No Information Advance Directives Directive Response Recor ded Date/Time Advance Directives No 11:48am Health Care Power of Software Engineering Project Manager No 02/26/16 11:48am Organ Donor No 02/26/16 11:48am Resuscitation Status Full Code 02/26/16 11:48am Directive Response Recor ded Date/Time Advance Directives No 11:28am Health Care Power of Software Engineering Project Manager No 02/29/16 11:28am Organ Donor No 02/29/16 11:28am Resuscitation Status Full Code 02/29/16 11:28am Directive Response Recor ded Date/Time Advance Directives No 7:04pm Health Care Power of Software Engineering Project Manager No 05/28/16 7:04pm Organ Donor No 05/28/16 7:04pm Resuscitation Status Full Code 05/28/16 7:04pm Directive Response Recor ded Date/Time Advance Directives No 8:32pm Health Care Power of Software Engineering Project Manager No 01/15/15 8:32pm Organ Donor No [...] This clinical document has been generated using [employer] software that has been certified by the Office of the National Coordinator for Health Information Technology (ONC 15.99.04.3023.Diam.[id number]) and the National Committee for Pointing Machine Operator (NCQA, as an eMeasure certified technology). FOR [...] BASED ON T HE PRIMARY CLINICAL RECORDS. [employer]. provides no warranty or guara ntee of the accuracy or completeness of information in this document.The followi information is based on time limited clinical information UNRECOGNIZED CONTENT PROVIDED BELOW FOR UNRECOGNIZED SECTION REASON FOR VISIT [id number]
[2019-11-22 22:37] VITALS: BP 132/74
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
== END 2019-11-22 22:38 | disposition home or self-care (01) ==
LOC: EDUNIT# 20:59 → ER 21:01
DX: S93.402A Sprain of unspecified ligament of left ankle, initial encounter (principal); S63.502A Unspecified sprain of left wrist, initial encounter; S50.11XA Contusion of right forearm, initial encounter; J45.909 Unspecified asthma, uncomplicated; F41.9 Anxiety disorder, unspecified; E66.01 Morbid (severe) obesity due to excess calories; Z88.0 Allergy status to penicillin; Z79.52 Long term (current) use of systemic steroids; Z82.49 Family history of ischemic heart disease and other diseases of the circulatory system; V49.9XXA Car occupant (driver) (passenger) injured in unspecified traffic accident, initial encounter
CPT/HCPCS: 73090; 73110; 73610

== ENCOUNTER 2020-10-27 14:42 | Emergency (ER) | payer MEDICAID ==
[~2020-10-27] VITALS: Ht 175.2 cm; Wt 134.0 kg
[~2020-10-27 14:42] MED LIST changes: -OMEP40CA27 PO; +OMEP40CA6 PO; +SERT-413 PO; -SERT50TA9 PO; -SULF1TAB35 PO; +SULF1TAB38 PO
--- NOTE | 2020-10-27 15:47 | ED Respiratory ---
General Chief Complaint: Cough/Cold/Flu Symptoms Stated Complaint: COVID EXPOSURE/COUGH/SORE THROAT Nursing Triage Note: Pt ambulatory into ER with complaint of Covid Exposure, Cough/Congestion x3 days. Source: patient Exam Limitations: no limitations History of Present Illness Date Seen by Provider: Oct 27, 2020 Time Seen by Provider: 14:56 Initial Comments Here with complaint of Covid exposure several days ago and now 3 days of cough, congestion, fever, runny nose and mild sore throat. Did not get vaccinated because she did not have time. She is concerned that she has COVID-19. Denies nausea, vomiting or diarrhea. Timing/Duration: getting worse, other (3 days) Severity: moderate Prior Episodes/Possible Cause: no prior episodes Associated Symptoms: cough, muscle aches, nasal congestion, nasal drainage; No shortness of breath; sore throat; No wheezing Allergies and Home Medications Allergies Coded Allergies: Penicillins (Verified Allergy, Unknown, 02/26/16) Home Medications Cyclobenzaprine HCl 10 Mg Tablet, 10 MG PO Q8H PRN for SPASMS Prescribed by: CITLALY SCHMITT on 05/28/162034 Levofloxacin 750 Mg Tablet, 750 MG PO DAILY Prescribed by: CJ CASTELLANOS on 07/31/182211 Meloxicam 15 Mg Tablet, 15 MG PO DAILY PRN for PAIN Prescribed by: CITLALY SCHMITT on 05/28/162034 Oxycodone HCl/Acetaminophen 1 Each Tablet, 1-2 TAB PO Q4H PRN for PAIN Prescribed by: KRISTYN DREW on 02/29/16 1216 Prednisone 20 Mg Tab, 40 MG PO DAILY Prescribed by: CITLALY SCHMITT on 05/28/162034 Prednisone 20 Mg Tab, 40 MG PO DAILY Prescribed by: CJ CASTELLANOS on 07/31/182211 Sertraline HCl 50 Mg Tablet, 50 MG PO DAILY, (Reported) Sulfamethoxazole/Trimethoprim 1 Each Tablet, 1 EACH PO BID, (Reported) Sulfamethoxazole/Trimethoprim 1 Each Tablet, 1 EACH PO BID Prescribed by: KSENIA SAHU on 08/07/19 0348 Patient Home Medication List Home Medication List Reviewed: Yes Review of Systems Review of Systems Constitutional: see HPI EENTM: see HPI Respiratory: see HPI Cardiovascular: no symptoms reported Gastrointestinal: no symptoms reported Genitourinary: no symptoms reported Psychiatric/Neurological: No Symptoms Reported Past Uyrshgf-Jfzdti-Bosafu Hx Patient Social History Tobacco Use?: Yes Tobacco type used: Cigarettes Smoking Status: Current Everyday Smoker Use of E-Cig and/or Vaping dev: No Substance use?: No Alcohol Use?: No Pt feels they are or have been: No Immunizations Up To Date Tetanus Booster (TDap): More than 5yrs Influenza Vaccine Up-to-Date: No; Not Current Seasonal Allergies Seasonal Allergies: Yes Past Medical History Surgeries: Yes ( X 1, ENDOMETRIAL ABLATION, D&C) Adenoidectomy, Section, Gallbladder, Tonsillectomy Respiratory: Yes Asthma Cardiac: No Neurological: Yes (As Child- No seizure since age 7.) Seizure Disorder Reproductive Disorders: Yes (MENORRHAGIA, DUB-S/P ENDOMETRIAL ABLATION) Female Reproductive Disorders: Menstrual Problems, Endometriosis, Ovarian Cyst MEDICAL RECORDS TECH History: IUD Sexually Transmitted Disease: No HIV/AIDS: No Genitourinary: Yes UTI-Chronic Gastrointestinal: Yes (REFLUX SOMETIMES) Gastroesophageal Reflux, Chronic Diarrhea Musculoskeletal: No Endocrine: Yes (MORBID OBESITY) HEENT: Yes Loss of Vision: Bilateral Hearing Impairment: Denies Cancer: No Psychosocial: Yes Anxiety Integumentary: No Blood Disorders: No Adverse Reaction/Blood Tranf: No (N/A) Family Medical History Reviewed Nursing Family Hx Congenital heart disease 09 BROTHER (brother was born with bicuspid valve and was unaware of this until had endocarditis at age 21) Family history: Allergy 03 FATHER (both father and pt have seasonal allergies) Heart disease 09 BROTHER (brother had endocarditis due to congital abnormality-onset at age 21) Hypercholesterolemia 03 FATHER (father has high cholesterol that started when he was 50) Stroke 09 BROTHER (brother had a stroke when he had endocarditis at age 21) No Pertinent Family Hx Physical Exam Vital Signs - First Documented Capillary Refill : Less Than 3 Seconds Height: 5'9.00" Weight: 320lbs. 3.0oz. 145.881489dc; 43.00 BMI Method:Stated General Appearance: WD/WN, no apparent distress, obese HEENT: PERRL/EOMI, pharyngeal erythema Neck: full range of motion, supple Respiratory: lungs clear, normal breath sounds Cardiovascular: no murmur, tachycardia Gastrointestinal: non tender, soft Neurologic/Psychiatric: alert, oriented x 3 Skin: normal color, warm/dry Progress/Results/Core Measures Suspected Sepsis SIRS Temperature: Pulse: 102 Respiratory Rate: 20 Blood Pressure 146 /85 Mean: 105 Results/Orders Lab Results Laboratory Tests Test 10/27/20 14:50 Range/Units My Orders Orders - TING PEDERSON MD Covid 19 Inhouse Test (10/27/20 14:55) Influenza A And B By Pcr (10/27/20 14:55) Vital Signs/I&O 10/27/20 10/27/20 14:57 14:57 Temp 36.9 Pulse 102 Resp 20 B/P (MAP) 146/85 (105) Pulse Ox 99 O2 Delivery Room Air Room Air Capillary Refill : Less Than 3 Seconds Blood Pressure Mean: 105 Progress Note : Progress Note Seen and evaluated. Covid and influenza screening initiated. Patient will qualify for monoclonal antibody therapy due to BMI of 43 if positive. I did discuss therapy including risk and benefits and emergency use authorization. Patient has agreed to therapy. 1540: Patient is positive for COVID-19. Orders written for monoclonal antibody therapy. Discharged home with return precautions. Patient verbalized understanding of instructions and agreement with plan. Departure Impression Primary Impression: COVID-19 virus infection Disposition: HOME, SELF-CARE Condition: Stable Departure-Patient Inst. Decision time for Depature: 15:42 [facility] Primary Care Physician CRISS LEI (Family) Primary Care Physician Patient Instructions: COVID-19 (DC), Casirivimab and Imdevimab FDA Fact Sheet Add. Discharge Instructions: All discharge instructions reviewed with patient and/or family. Voiced understanding. Drink plenty of fluids and get plenty of rest. Your COVID-19 test was positive. You will need to remain in isolation for at least 10 days with day 0 on October, and you will count for 10 days from there. You must be symptom improving and fever free in the last 3 days without fever reducing medicines to be out of isolation after the 10th day. The health department should contact you to direct timeframe as well. You need to notify your close contacts so that they may quarantine and this will include anybody that you are around for 10 minutes within 6 feet 2 days prior to onset of symptoms. Monitor your oxygen saturation while resting. Currently it is 99 percent. If that starts to decline to the low 90s and certainly below 90, please return immediately to the emergency department for further evaluation. You may take ibuprofen 600 mg every 8 hours as needed for fever or pain. You may take Tylenol/acetaminophen 1000 mg every 8 hours as needed for fever or pain. Return for worse pain, fever, vomiting, weakness, breathing problems or other concerns as needed. You will be called by the hospital for the antibody infusion therapy as discussed. Please answer the phone. Follow their directions as to location and time. TING PEDERSON MD Oct 27, 2020 15:47
[2020-10-27 16:02] VITALS: BP 161/84
== END 2020-10-27 15:51 | disposition home or self-care (01) ==
LOC: EDUNIT# 14:42 → ER 14:43
DX: U07.1 COVID-19 (principal); E66.01 Morbid (severe) obesity due to excess calories; F41.9 Anxiety disorder, unspecified; F17.210 Nicotine dependence, cigarettes, uncomplicated; Z68.41 Body mass index [BMI] 40.0-44.9, adult; Z79.52 Long term (current) use of systemic steroids; Z79.899 Other long term (current) drug therapy
CPT/HCPCS: 87636; 99282

== ENCOUNTER → 2020-10-29 | Outpatient (CLI) | payer MEDICAID ==
[~2020-10-29] VITALS: Ht 175 cm; Wt 134.0 kg
[~2020-10-29] MED LIST changes: +CASIRIVIMAB/IMDEVIMAB 1,200 MG in NS (IVPB) 250 ML IV ONE; +EPINEPHrine INJECTION 1 MG/ML AMP IM PRN; +diphenhydrAMINE 50 MG/ML INJ (BENADRYL) IV PRN
[2020-10-29 12:23] VITALS: BP 126/79
== END ==
LOC: INFUSION 12:15
PROVIDERS: ATTEND Emergency Medicine
DX: Z23 Encounter for immunization (principal); U07.1 COVID-19

== ENCOUNTER 2020-12-01 10:42 | Emergency (ER) | payer MEDICAID ==
[~2020-12-01] VITALS: Ht 175.5 cm; Wt 134.0 kg
[~2020-12-01 10:42] MED LIST changes: -CASIRIVIMAB/IMDEVIMAB 1,200 MG in NS (IVPB) 250 ML IV ONE; -EPINEPHrine INJECTION 1 MG/ML AMP IM PRN; -diphenhydrAMINE 50 MG/ML INJ (BENADRYL) IV PRN
--- NOTE | 2020-12-01 11:09 | ED Back Pain ---
General Chief Complaint: Back Problems Stated Complaint: BACK PAIN Source of Information: Patient Exam Limitations: No Limitations History of Present Illness Date Seen by Provider: Dec 01, 2020 Time Seen by Provider: 11:07 Initial Comments To ER by wheelchair with reports of low back pain. This began yesterday midline low back and has since moved to the right low back. She has a history of kidney stones and this pain moving reminds her of that. However the pain is essentially nonexistent at rest and only comes about with movement. No fevers or chills. No loss of bowel or bladder control. No numbness of genitals. Pain does not radiate down either of her legs. No history of cancer. No history of IV drug use. She has only taken ibuprofen for this pain and takes no other medications she states. Location: Lumbar Spine Timing/Duration: 1-2 Days Severity: Moderate Pain/Injury Location: Back Method of Injury: Unknown Associated Symptoms: lower back pain Allergies and Home Medications Allergies Coded Allergies: Penicillins (Verified Allergy, Unknown, 02/26/16) Home Medications Cyclobenzaprine HCl 10 Mg Tablet, 10 MG PO Q8H PRN for SPASMS Prescribed by: CITLALY SCHMITT on 05/28/162034 Levofloxacin 750 Mg Tablet, 750 MG PO DAILY Prescribed by: CJ CASTELLANOS on 07/31/182211 Meloxicam 15 Mg Tablet, 15 MG PO DAILY PRN for PAIN Prescribed by: CITLALY SCHMITT on 05/28/162034 Oxycodone HCl/Acetaminophen 1 Each Tablet, 1-2 TAB PO Q4H PRN for PAIN Prescribed by: KRISTYN DREW on 02/29/16 1216 Prednisone 20 Mg Tab, 40 MG PO DAILY Prescribed by: CITLALY SCHMITT on 05/28/162034 Prednisone 20 Mg Tab, 40 MG PO DAILY Prescribed by: CJ CASTELLANOS on 07/31/182211 Sertraline HCl 50 Mg Tablet, 50 MG PO DAILY, (Reported) Sulfamethoxazole/Trimethoprim 1 Each Tablet, 1 EACH PO BID, (Reported) Sulfamethoxazole/Trimethoprim 1 Each Tablet, 1 EACH PO BID Prescribed by: KSENIA SAHU on 08/07/19 0348 Patient Home Medication List Home Medication List Reviewed: Yes Review of Systems Constitutional: see HPI EENTM: see HPI Respiratory: no symptoms reported Cardiovascular: no symptoms reported Genitourinary: no symptoms reported Musculoskeletal: see HPI Skin: no symptoms reported Psychiatric/Neurological: No Symptoms Reported Past Fxtusad-Hfdnjs-Acikgq Hx Immunizations Up To Date Tetanus Booster (TDap): More than 5yrs Seasonal Allergies Seasonal Allergies: Yes Past Medical History Surgeries: Yes ( X 1, ENDOMETRIAL ABLATION, D&C) Adenoidectomy, Section, Gallbladder, Tonsillectomy Respiratory: Yes Asthma Cardiac: No Neurological: Yes (As Child- No seizure since age 7.) Seizure Disorder Reproductive Disorders: Yes (MENORRHAGIA, DUB-S/P ENDOMETRIAL ABLATION) Female Reproductive Disorders: Menstrual Problems, Endometriosis, 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 Sexually Transmitted Disease: No HIV/AIDS: No Genitourinary: Yes UTI-Chronic Gastrointestinal: Yes (REFLUX SOMETIMES) Gastroesophageal Reflux, Chronic Diarrhea Musculoskeletal: No Endocrine: Yes (MORBID OBESITY) HEENT: Yes Loss of Vision: Bilateral Hearing Impairment: Denies Cancer: No Psychosocial: Yes Anxiety Integumentary: No Blood Disorders: No Adverse Reaction/Blood Tranf: No (N/A) Family Medical History Congenital heart disease 09 BROTHER (brother was born with bicuspid valve and was unaware of this until had endocarditis at age 21) Family history: Allergy 03 FATHER (both father and pt have seasonal allergies) Heart disease 09 BROTHER (brother had endocarditis due to congital abnormality-onset at age 21) Hypercholesterolemia 03 FATHER (father has high cholesterol that started when he was 50) Stroke 09 BROTHER (brother had a stroke when he had endocarditis at age 21) No Family History of: Abdominal aortic aneurysm Boundary's disease Alcoholism Aphasia Cancer Cancer of colon Cataract Chest pain Congestive heart failure Cystic fibrosis Dementia Dysphagia Family history: Alzheimer's disease Family history: Arthritis Family history: Asthma Family history: Breast disease Family history: Cardiovascular disease Family history: Coronary thrombosis Family history: Diabetes mellitus Family history: Gastrointestinal disease Family history: Glaucoma Family history: Hypertension Family history: Osteoporosis Family history: Thyroid disorder Headache Hearing loss Hereditary disease History of - anemia History of - disorder History of - respiratory disease History of drug abuse Human immunodeficiency virus (HIV) seropositivity Infertile Kidney disease Malignant neoplasm of lung Myocardial infarction Parkinson's disease Prostate cancer Psychotic disorder Seizure disorder Tuberculosis Visual impairment No Pertinent Family Hx Physical Exam Vital Signs Vital Signs - First Documented 12/01/20 11:00 Temp 36.6 Pulse 98 Resp 20 B/P (MAP) 105/56 (72) Pulse Ox 100 Capillary Refill : Height, Weight, BMI Height: 5'9.00" Weight: 320lbs. 3.0oz. 145.617106cf; 43.00 BMI Method:Stated General Appearance: No Apparent Distress, Other (Alert and oriented. Flat affect. Poor eye contact. Barefooted with very dirty feet.) Neck: Full Range of Motion, Normal Inspection Cardiovascular: Regular Rate, Rhythm, Normal Peripheral Pulses Respiratory: No Accessory Muscle Use, No Respiratory Distress Gastrointestinal: Normal Bowel Sounds, Non Tender, Soft Extremity: Normal Capillary Refill, Normal Inspection Neurologic/Psychiatric: Alert, Oriented x3 Skin: Normal Color, Warm/Dry Progress/Results/Core Measures Results/Orders Lab Results Laboratory Tests Test 12/01/20 11:32 Range/Units White Blood Count 8.0 4.3-11.0 10^3/uL Red Blood Count 4.39 3.80-5.11 10^6/uL Hemoglobin 13.6 11.5-16.0 g/dL Hematocrit 42 35-52 % Mean Corpuscular Volume 95 80-99 fL Mean Corpuscular Hemoglobin 31 25-34 pg Mean Corpuscular Hemoglobin Concent 33 32-36 g/dL Red Cell Distribution Width 13.1 10.0-14.5 % Platelet Count 228 130-400 10^3/uL Mean Platelet Volume 9.2 9.0-12.2 fL Immature Granulocyte % (Auto) 0 % Neutrophils (%) (Auto) 75 42-75 % Lymphocytes (%) (Auto) 16 12-44 % Monocytes (%) (Auto) 7 0-12 % Eosinophils (%) (Auto) 2 0-10 % Basophils (%) (Auto) 0 0-10 % Neutrophils # (Auto) 6.0 1.8-7.8 10^3/uL Lymphocytes # (Auto) 1.3 1.0-4.0 10^3/uL Monocytes # (Auto) 0.5 0.0-1.0 10^3/uL Eosinophils # (Auto) 0.1 0.0-0.3 10^3/uL Basophils # (Auto) 0.0 0.0-0.1 10^3/uL Immature Granulocyte # (Auto) 0.0 0.0-0.1 10^3/uL Sodium Level 140 135-145 MMOL/L Potassium Level 3.5 L 3.6-5.0 MMOL/L Chloride Level 107 98-107 MMOL/L Carbon Dioxide Level 20 L 21-32 MMOL/L Anion Gap 13 5-14 MMOL/L Blood Urea Nitrogen 9 7-18 MG/DL Creatinine 0.77 0.60-1.30 MG/DL Estimat Glomerular Filtration Rate 83 BUN/Creatinine Ratio 12 Glucose Level 145 H 70-105 MG/DL Calcium Level 8.7 8.5-10.1 MG/DL Serum Test, Qualitative NEGATIVE NEGATIVE My Orders Orders - FLEX JENNINGS APRN Hcg,Qualitative Serum (12/01/20 11:05) Ct Abd/Pelvis Wo(Kidney Stone) (12/01/20 11:05) Ua Culture If Indicated (12/01/20 11:05) Drug Screen Stat (Urine) (12/01/20 11:05) Ketorolac Injection (Toradol Injection) (12/01/20 11:15) Orphenadrine Inj (Ed Only) (Norflex Inje (12/01/20 11:15) Lactated Ringers (Lr 1000 Ml Iv Solution (12/01/20 11:15) Lactated Ringers (Lr 1000 Ml Iv Solution (12/01/20 11:45) Cbc With Automated Diff (12/01/20 11:54) Basic Metabolic Panel (12/01/20 11:54) Vital Signs/I&O 12/01/20 11:00 Temp 36.6 Pulse 98 Resp 20 B/P (MAP) 105/56 (72) Pulse Ox 100 Departure Communication (Admissions) Patient states she is unable to give urine sample. Nurse was unable to get IV access. Upon my exam there are multiple puncture sites that are old bruised with induration in the antecubital fossa bilaterally consistent with IV drug use which she adamantly denies. She states these are bruises from having fallen. These are absolutely not bruises from the fall. Patient states she is unable to give urine sample. Impression Primary Impression: Back pain Additional Impression: Drug abuse, IV Disposition: 01 HOME, SELF-CARE Condition: Stable Departure-Patient Inst. Decision time for Depature: 13:10 Referrals: [facility] ([place]) Primary Care Physician CRISS LEI (Family) Primary Care Physician Patient Instructions: Low Back Pain (DC) Scripts Meloxicam (Mobic) 7.5 Mg Tablet 7.5 MG PO DAILY, #14 TAB Prov: FLEX JENNINGS APRN 12/01/20 FLEX JENNINGS APRN Dec 01, 2020 11:09
[2020-12-01] MEDS ORDERED: KETOROLAC 30 MG/ML VIAL IVP ONE (11:15)
[2020-12-01] MEDS ORDERED: LACTATED RINGERS 1,000 ML IV SCH ×2 (11:15→11:45)
[2020-12-01] MEDS ORDERED: ORPHENADRINE 60 MG/2 ML (NORFLEX) AMP (ED ONLY) IV ONE (11:15)
[2020-12-01 12:02] LABS: BASOPHILS % (AUTO) 0 % (0-10); EOSINOPHILS # (AUTO) 0.1 10^3/uL (0.0-0.3); EOSINOPHILS % (AUTO) 2 % (0-10); HEMATOCRIT 42 % (35-52); HEMOGLOBIN 13.6 g/dL (11.5-16.0); LYMPHOCYTES # (AUTO) 1.3 10^3/uL (1.0-4.0); LYMPHOCYTES % (AUTO) 16 % (12-44); MEAN CORPUSCULAR HEMOGLOBIN 31 pg (25-34); MEAN CORPUSCULAR HGB CONC 33 g/dL (32-36); MEAN CORPUSCULAR VOLUME 95 fL (80-99); MEAN PLATELET VOLUME 9.2 fL (9.0-12.2); MONOCYTES # (AUTO) 0.5 10^3/uL (0.0-1.0); MONOCYTES % (AUTO) 7 % (0-12); NEUTROPHILS % (AUTO) 75 % (42-75); PLATELET COUNT 228 10^3/uL (130-400)
[2020-12-01 12:11] LABS: POTASSIUM 3.5 MMOL/L (3.6-5.0)
[2020-12-01 12:13] LABS: CALCIUM 8.7 MG/DL (8.5-10.1)
[2020-12-01 12:17] LABS: CREATININE SERUM 0.77 MG/DL (0.60-1.30)
--- NOTE | 2020-12-01 12:57 | Diagnostic Imaging Report ---
EXAMINATION: CT abdomen and pelvis without contrast. TECHNIQUE: Multiple contiguous axial images were obtained through the abdomen and pelvis without the use of intravenous contrast. All CT scans use one or more of the following dose optimizing techniques: automated exposure control, MA and/or KvP adjustment based on patient size and exam type or iterative reconstruction. HISTORY: Right flank pain. COMPARISON: CT 05/28/2016. FINDINGS: Lung bases: The lung bases are clear. Solid organs: The liver is normal. The gallbladder is surgically absent. There is no biliary ductal dilation. Pancreas is normal. Spleen is normal. Adrenal glands are normal. The kidneys are normal without visualized calculus or hydronephrosis. Bowel: The stomach and small bowel are normal without obstruction. The colon and appendix are normal. Peritoneum: There is no intraperitoneal free fluid or free air. No suspicious lymphadenopathy. Vasculature: Normal without aneurysm. Musculoskeletal: There are bilateral L5 pars defects. There is a small fat-containing periumbilical hernia. Pelvis: IUD is present within the uterine fundus. The urinary bladder is normal. IMPRESSION: 1. No acute abnormality in the abdomen or pelvis. No visualized renal calculus or hydronephrosis. Dictated by: Dictated on workstation # [id number]
[2020-12-01] MEDS ORDERED: MELO-170 PO (13:11)
[2020-12-01 13:40] VITALS: BP 105/56
== END 2020-12-01 13:40 | disposition home or self-care (01) ==
LOC: EDUNIT# 10:42 → ER 10:44
DX: M54.5 Low back pain (principal); F19.10 Other psychoactive substance abuse, uncomplicated; J45.909 Unspecified asthma, uncomplicated; F41.9 Anxiety disorder, unspecified; E66.01 Morbid (severe) obesity due to excess calories; Z68.41 Body mass index [BMI] 40.0-44.9, adult; Z79.899 Other long term (current) drug therapy; Z79.52 Long term (current) use of systemic steroids
CPT/HCPCS: 36415; 74176; 80048; 84703; 85025

== ENCOUNTER → 2023-03-09 | Outpatient (CLI) | payer MEDICAID ==
[~2023-03-09] MED LIST changes: +CYCL10TA25 PO; -CYCL10TA9 PO; +MELO-170 PO
--- NOTE | 2023-03-09 15:48 | Diagnostic Imaging Report ---
INDICATION: Palpable lump in the left breast. COMPARISON: Correlation is made with the prior mammogram of 02/22/2016. TECHNIQUE: 2D and 3D bilateral diagnostic mammography was performed with CAD. FINDINGS: Scattered fibroglandular densities are identified bilaterally. There is a fat density nodule in the upper inner aspect of the left breast at the area of palpable abnormality. This shows thin peripheral calcification and has the appearance of an oil cyst. There is also density in the slightly outer aspect of the left breast at mid depth. Additional views of this area were also performed including spot compression CC and rolled CC views. No definite correlate on the MLO or ML view is seen. It is uncertain if this represents fibroglandular tissue versus underlying mass. The right breast is unremarkable. The axillae are unremarkable. IMPRESSION: Fat nodule with peripheral calcification in the upper inner left breast at the area of palpable abnormality, likely an oil cyst. Further evaluation of this area with ultrasound is recommended and will be performed today. In addition, ultrasound evaluation of the outer left breast approximately 5 cm from the nipple is recommended to evaluate the density noted mammographically. ACR BI-RADS Category 0: Incomplete. (Needs additional imaging evaluation). Result letter will be mailed to the patient. Note: At least 10% of breast cancer is not imaged by mammography. Dictated by: Dictated on workstation # [id number]
--- NOTE | 2023-03-09 15:56 | Diagnostic Imaging Report ---
INDICATION: Left breast lump and left breast density. COMPARISON: Correlation is made with the diagnostic mammogram from earlier this same day. FINDINGS: Sonographic interrogation of the upper inner left breast at the area of palpable abnormality was performed. This corresponds to the 10 o'clock location 7 to 8 cm from the nipple. There is a circumscribed hypoechoic nodule measuring approximately 6 mm x 5 mm in size. This does show some internal debris and a small septation. This could represent a small oil cyst. No internal vascularity is seen. The outer portion of the left breast was also evaluated. No solid or cystic mass is identified to account for the density noted mammographically. There was a small hemorrhagic cyst at the 11 o'clock location of the left breast approximately 3 mm in size. IMPRESSION: Benign-appearing cystic lesions at the 10 and 11 o'clock locations of the left breast. The 10 o'clock lesion corresponds to the palpable abnormality and may represent a small oil cyst. No solid masses are identified. Specifically, no abnormality was identified in the outer left breast to account for the mammographic density seen laterally. Even so, a followup left mammogram in 6 months is recommended to show continued stability. ACR BI-RADS Category 3: Probably benign findings. Dictated by: Dictated on workstation # [id number]
== END ==
LOC: RAD 12:48
PROVIDERS: ATTEND Obstetrics & Gynecology
DX: N60.12 Diffuse cystic mastopathy of left breast (principal)
CPT/HCPCS: 76642; 77066; G0279; 77062